=== PATIENT | female | born 1960 | race Caucasian/White ===

== ENCOUNTER → 2016-07-21 | Outpatient (CLI) | payer BC ==
[~2016-07-21] MED LIST: ASPEC81 PO; OMEG10007 PO; [UNRECOGNIZED DRUG - CODE]; [UNRECOGNIZED DRUG - OTHER]
[2016-07-21 19:04] LABS: BLOOD UREA NITROGEN 17 mg/dl (7-18); BUN/CREATININE RATIO 16.7 (10-20); CALCIUM 9.3 mg/dl (8.5-10.1); CARBON DIOXIDE 30 mmol/L (21-32); CHLORIDE 106 mmol/L (98-107); GLUCOSE 98 mg/dl (70-99); POTASSIUM 4.2 mmol/L (3.5-5.1); SODIUM 142 mmol/L (136-145)
== END | disposition home or self-care (01) ==
LOC: C.LABPVFM 11:22
PROVIDERS: ATTEND Family Medicine
DX: E87.6 Hypokalemia (principal)

== ENCOUNTER → 2016-08-27 | Outpatient (CLI) | payer BC ==
--- NOTE | 2016-08-27 11:16 | DIAGNOSTIC IMAGING REPORT ---
Venous Doppler right leg RIGHT VENOUS DOPP LOWER EXT UNILAT CLINICAL HISTORY: RT LEG Swelling, r/o DVT Right pain. Edema. TECHNIQUE: Venous Doppler COMPARISON STUDY: None FINDINGS: Deep venous structures appear to be intact. There is thrombus within the distal greater saphenous vein extending through several superficial venous varicosities of the lower leg. This consistent with rather significant superficial thrombophlebitis. There is popliteal cyst posterior to the knee measuring 3.5 x 2.0 cm. IMPRESSION: 1. Extensive superficial thrombophlebitis distal greater saphenous vein including several varicosities of the lower leg. 2. No evidence for deep venous thrombosis. 3. Small popliteal cyst posterior to the knee Electronically signed by: Tariq Lorenzo M.D. 08/27/2016 11:14 AM Dictated Date/Time: 08/27/2016 11:12 AM
== END | disposition home or self-care (01) ==
LOC: C.ULTRBC 10:14
PROVIDERS: ATTEND Nurse Practitioner Family
DX: M79.89 Other specified soft tissue disorders (principal); I80.01 Phlebitis and thrombophlebitis of superficial vessels of right lower extremity

== ENCOUNTER → 2016-12-21 | Outpatient (CLI) | payer BC ==
[2016-12-21 14:04] LABS: BLOOD UREA NITROGEN 16 mg/dl (7-18); BUN/CREATININE RATIO 18.3 (10-20); CALCIUM 9.1 mg/dl (8.5-10.1); CARBON DIOXIDE 30 mmol/L (21-32); CHLORIDE 106 mmol/L (98-107); GLUCOSE 101 mg/dl (70-99); MAGNESIUM 2.2 mg/dl (1.8-2.4); POTASSIUM 4.1 mmol/L (3.5-5.1); SODIUM 142 mmol/L (136-145)
== END | disposition home or self-care (01) ==
LOC: C.LABPVFM 10:50
PROVIDERS: ATTEND Family Medicine
DX: R25.2 Cramp and spasm (principal); I10 Essential (primary) hypertension

== ENCOUNTER → 2017-05-31 | Outpatient (CLI) | payer BC ==
[2017-05-31 12:51] LABS: BLOOD UREA NITROGEN 15 mg/dl (7-18); BUN/CREATININE RATIO 17.5 (10-20); CALCIUM 9.4 mg/dl (8.5-10.1); CARBON DIOXIDE 29 mmol/L (21-32); CHLORIDE 104 mmol/L (98-107); CREATININE 0.87 mg/dl (0.60-1.20); GLUCOSE 102 mg/dl (70-99); POTASSIUM 4.1 mmol/L (3.5-5.1); SODIUM 141 mmol/L (136-145)
== END | disposition home or self-care (01) ==
LOC: C.LABPVFM 11:03
PROVIDERS: ATTEND Family Medicine
DX: I10 Essential (primary) hypertension (principal)

== ENCOUNTER → 2017-06-23 | Outpatient (CLI) | payer BC ==
--- NOTE | 2017-06-23 14:34 | MAMMOGRAPHY REPORT ---
BILATERAL DIGITAL SCREENING MAMMOGRAM TOMOSYNTHESIS WITH CAD: 06/23/2017 CLINICAL HISTORY: Routine screening. Patient has no complaints. TECHNIQUE: Breast tomosynthesis in addition to standard 2D mammography was performed. Current study was also evaluated with a Computer Aided Detection (CAD) system. COMPARISON: Comparison is made to exams dated: 06/21/2016 mammogram, 06/17/2015 mammogram, 06/11/2014 mammogram, 06/08/2013 mammogram, 06/09/2012 ultrasound, and 06/09/2012 mammogram - [facility]. BREAST COMPOSITION: There are scattered areas of fibroglandular density in both breasts. FINDINGS: No suspicious masses, calcifications, or areas of architectural distortion are noted in ei ther breast. There has been no significant interval change compared to prior exams. IMPRESSION: ACR BI-RADS CATEGORY 1: NEGATIVE There is no mammographic evidence of malignancy. A 1 year screening mammogram is recommended. The pa tient will receive written notification of the results. Approximately 10% of breast cancers are not detected with mammography. A negative mammographic report should not delay biopsy if a clinically suggestive mass is present. Junie Vieira M.D. /:06/23/2017 11:10:56 Principal Examiner: Patricia TA(Jamila)(Umesh), [facility] letter sent: Normal 1/2 BI-RADS Code: ACR BI-RADS Category 1: Negative
== END | disposition home or self-care (01) ==
LOC: C.MAMM 09:34
PROVIDERS: ATTEND Family Medicine
DX: Z12.31 Encounter for screening mammogram for malignant neoplasm of breast (principal)

== ENCOUNTER → 2017-10-10 | Outpatient (CLI) | payer BC ==
[2017-10-10 13:07] LABS: ALBUMIN 3.7 gm/dl (3.4-5.0); ALT/SGPT 25 U/L (12-78); AST/SGOT 14 U/L (15-37); BLOOD UREA NITROGEN 20 mg/dl (7-18); CALCIUM 9.5 mg/dl (8.5-10.1); CARBON DIOXIDE 28 mmol/L (21-32); CREATININE 0.81 mg/dl (0.60-1.20); GLUCOSE 104 mg/dl (70-99); POTASSIUM 3.9 mmol/L (3.5-5.1); SODIUM 138 mmol/L (136-145)
[2017-10-10 13:10] LABS: ALKALINE PHOSPHATASE 60 U/L (45-117); CHOLESTEROL 213 mg/dl (0-200); LDL CHOLESTEROL CALCULATED 145 mg/dl; TOTAL PROTEIN 7.6 gm/dl (6.4-8.2)
== END | disposition home or self-care (01) ==
LOC: C.LABPVFM 10:39
PROVIDERS: ATTEND Family Medicine
DX: I83.90 Asymptomatic varicose veins of unspecified lower extremity (principal)

== ENCOUNTER 2024-03-11 15:35 | Inpatient (IN) ==
--- NOTE | 2024-03-11 16:39 | Emergency Department Note ---
Impression & Plan Fall, Closed fracture of left hip ED Provider Note Provider: Brannon Barrett MD DATE OF SERVICE: 03/11/2024 CHIEF COMPLAINT: Fall, left hip pain HISTORY OF PRESENT ILLNESS: Patient is a 63-year-old female history of arthritis hypertension presenting here today after a fall via ambulance. Patient states she was the [employer] fair and they were getting home and unloading a small fridge rater that they had taken to camp at the tent there. They are helping down she tripped on the threshold and fell back onto her left hip onto the ground. Denies striking her head. Denies loss conscious. Denies significant head pain, neck pain, shoulder pain, chest pain, or abdominal pain. Denies significant injury to the elbows. Did bump the left elbow several days ago but denies any significant pain here. Patient report significant pain to left hip was able to get up. Ambulance called and brought here. No pain medicine prior to arrival. No use of anticoagulants. Patient states that she does have some arthritis of the knees and the right leg is okay and the left knee and left foot do not hurt. She denies numbness in the leftlower extremity. Pain with movement of the left hip. No history of surgeries here. 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 NECK: Trachea midline. ENT: Mucous membranes pink and moist. LUNGS: Airway patent. No retractions. Breath sounds clear HEART: Regular rate and rhythm. No chest wall tenderness ABDOMEN: Soft and non-tender, without guarding or rebound. Stable pelvis SKIN: Acyanotic, warm, dry, without rashes EXTREMITIES: Without swelling, tenderness or deformity with a small healing contusion of the back of the left leg. There is pain with movement around the left hip but no significant tenderness of the left thigh knee. Soft compartments of the extremities appreciated. NEUROLOGICAL: No focal deficits. No aphasia. No facial droop or slurred speech. Normal strength and tone in the extremities. Sensation to gross touch normal. EK bpm normal sinus rhythm. No PVC or PAC. No acute ST segment elevation with some lateral ST flattening and a QTc of 441. CONTINUOUS CARDIAC MONITORING: was ordered and showed a heart rate of 60s to 70s bpm in normal sinus rhythm GCS 15. Patient's laboratory studies and imaging reviewed. Differential includes Fracture, dislocation, neurovascular compromise, compartment syndrome, soft tissue injury, head injury, rib fracture, intra- abdominal bleeding or pelvic bleeding, as well as other pathologies. IMPRESSION/MEDICAL DECISION MAKING: Patient resting comfortably in bed initially in no obvious distress. Neurologically intact. Limited movement around the left hip secondary to pain. No significant tenderness left lower leg or evidence of compartment syndrome in the extremities. Healing contusion to left elbow but no significant tenderness here. Did seem altered and denies any head injury. Not on # anticoagulants. X-ray imaging of the pelvis and hip show evidence of a left intertrochanteric hip fracture. Will give some fentanyl for pain. Basic blood work to be ordered. Reached out to orthopedics to discuss bring the patient in for definite repair/surgery. Updated patient and family at bedside with the findings. Hospitalist contacted for admission. Do not feel that time we need additional imaging beyond a chest x-ray and I doubt any significant intra- abdominal or pelvic bleeding. DIAGNOSIS: Left hip fracture, fall DISPOSITION: Hospitalist will evaluate Patient was agreeable with this plan. Past Med/Surg History Problem List (Updated 03/11/24 @ 16:39 by Brannon Barrett M.D.) Closed fracture of left hip (Acute) Fall (Acute) Abdominal pain Elevated hemoglobin A1c Right elbow tendonitis Colon cancer screening Venous stasis (Acute) Varicose veins of anus or rectum (Acute) Unknown whether patient has any health problems (Acute) Need for hepatitis C screening test (Acute) Mixed hyperlipidemia (Chronic) Glossitis (Chronic) Swelling of right side of face (Acute) Routine health maintenance (Chronic) Varicose veins of both lower extremities (Chronic) Lower back pain (Acute) Wound infection (Acute) Wound of left lower extremity (Acute) Chronic venous insufficiency (Chronic) Venous stasis ulcer (Acute) Degenerative arthritis of knee, bilateral Screening for diabetes mellitus Benign positional vertigo Medical History History of COVID-19 History of ulcer of lower extremity Hypercholesteremia Degenerative arthritis of knee, bilateral Phlebitis Chronic reflux esophagitis Hypertension Peripheral neuropathy Surgical History History of vein stripping H/O colonoscopy S/P tonsillectomy Family History Mother Myocardial infarction Father Prostate cancer Denies family history of Ovarian cancer Breast cancer Colorectal cancer Social History Smoking Status: Never smoker Second Hand Exposure: No; Do You Dip or Chew Tobacco: No; Hx Alcohol Use: No Hx Substance Use: No Preferred Language: Chinese Communication Ability: Effective Visual Impairment: No Limitations Hearing Ability: Normal Scrub Nurse Required: No Beliefs That Will Affect Care: None and Scientologist Scientologist Beliefs: BRANDON marital status: Single Current Living Situation: Alone current occupational status: employed 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 Feels Safe at Home: Yes caffeine: No Dental Care, Regularly: Yes Physical Activity Frequency: Does not Exercise Seatbelt Use: always Sunscreen Use: Yes Assistive Devices: Contacts and Glasses Allergies Allergies Allergy/AdvReac Type Severity Reaction Status Date / Time enoxaparin [From Lovenox] Allergy Unknown Hives Verified 03/11/24 18:08 lisinopril Allergy Unknown Hives Verified 03/11/24 18:08 Penicillins Allergy Unknown Hives Verified 03/11/24 18:08 Sulfa (Sulfonamide Allergy Unknown Hives Verified 03/11/24 18:08 Antibiotics) Home Meds Home Medications Medication Instructions Recorded Confirmed docusate sodium 100 mg capsule 100 mg PO BID 03/12/19 03/11/24 multivitamin (Daily Multi-Vitamin 1 tab PO DAILY 03/12/19 03/11/24 tablet) calcium citrate 200 mg 2 tab PO DAILY 07/20/19 03/11/24 calcium-vitamin D3 6.25 mcg (250 unit) tablet (Citracal-D3 Petites) ascorbate calcium (vitamin C) 500 500 mg PO DAILY 09/18/19 03/11/24 mg tablet omega-3 fatty acids-fish oil 360 1 cap PO BID 04/14/21 03/11/24 mg-1,200 mg capsule (Fish Oil) vitamin E mixed 400 unit tablet 400 units PO BID 04/14/21 03/11/24 cyanocobalamin (vitamin B-12) 1,000 mcg PO 3XWK 03/11/24 03/11/24 1,000 mcg tablet (Vitamin B-12) Previous Rx's Medication Instructions Recorded aspirin 81 mg tablet,delayed 81 mg PO DAILY #30 tabs 01/04/19 release (Adult Low Dose Aspirin) thigh high compression stockings #1 ea 05/07/22 spironolactone 25 mg tablet 25 mg PO QAM #90 tabs 10/11/23 atenolol 50 mg tablet 50 mg PO QAM #90 tabs 12/05/23 atorvastatin 20 mg tablet 20 mg PO QPM #90 tabs 12/05/23 potassium chloride 10 mEq 10 meq PO BID #180 tabs 12/05/23 tablet,extended release Results & Data (ED) Vital Signs Vital Signs - 24 hr 03/11/24 15:51 03/11/24 16:35 03/11/24 17:18 Temperature 36.6 C Temperature Source Oral Pulse Rate 66 65 69 Pulse Rate from SpO2 Sensor 70 Respiratory Rate 15 20 Respiratory Effort / Characteristics Non-Labored Spontaneous Respiratory Depth Normal Respiratory Pattern Regular Blood Pressure 144/76 H 170/88 H Blood Pressure Mean 98 115 Blood Pressure Position Lying Pulse Oximetry 97 97 Oxygen Delivery Method Room Air Room Air Sepsis Recent Fever Within 48 Hours No Sepsis New/Unexplained Change in Mental Status N/A Sepsis Action Taken by Nursing No Action Required 03/11/24 18:00 Temperature Temperature Source Pulse Rate 72 Pulse Rate from SpO2 Sensor Respiratory Rate 13 Respiratory Effort / Characteristics Respiratory Depth Respiratory Pattern Blood Pressure 139/82 Blood Pressure Mean 109 Blood Pressure Position Pulse Oximetry 95 Oxygen Delivery Method Room Air Sepsis Recent Fever Within 48 Hours Sepsis New/Unexplained Change in Mental Status Sepsis Action Taken by Nursing Laboratory Data 03/11/24 16:50 03/11/24 16:50 Lab Results 03/11/24 03/11/24 Range/Units 16:50 17:25 WBC 7.35 (4.8-10.8) K/ul RBC 4.72 (4.20-5.40) M/uL Hgb 14.0 (12.0-16.0) g/dl Hct 42.3 (37.0-47.0) % MCV 89.6 (80.0-100.0) fL MCH 29.7 (25.0-34.0) pg MCHC 33.1 (32.0-36.0) g/dL RDW Std Deviation 42.0 (36.4-46.3) fL RDW Coeff of Shira 12.7 (11.5-14.5) % Plt Count 215 (130-400) K/uL MPV 10.2 (9.4-12.4) fL Immature Gran % (Auto) 0.5 % Neut % (Auto) 70.2 % Lymph % (Auto) 17.7 % [place] % (Auto) 9.7 % Eos % (Auto) 1.2 % Baso % (Auto) 0.7 % Neut # (Auto) 5.16 (1.40-6.50) K/uL Lymph # (Auto) 1.30 (1.20-3.40) K/uL [place] # (Auto) 0.71 H (0.11-0.59) K/uL Eos # (Auto) 0.09 (0.00-0.50) K/uL Baso # (Auto) 0.05 (0.00-0.20) K/uL Immature Gran # (Auto) 0.04 (0.01-0.20) K/uL PT 11.0 (9.0-12.0) Seconds INR 1.0 (0.9-1.1) APTT 24 (21-31) Seconds PTT Ratio 0.9 Sodium 138 (136-145) mmol/L Potassium 4.6 (3.5-5.1) mmol/L Chloride 102 (98-107) mmol/L Carbon Dioxide 30 (21-32) mmol/L Anion Gap 6 (3-11) BUN 23 (6-23) mg/dl Creatinine 1.00 (0.6-1.2) mg/dl Est Cr Clr Drug Dosing 60.5 ml/min Est GFR ( Amer) 68.5 ml/min Est GFR (Non-Af Amer) 59.1 ml/min BUN/Creatinine Ratio 23.0 H (10-20) Glucose 117 H (70-99(Fasting)) mg/dl Calcium 9.8 (8.6-10.3) mg/dl Total Bilirubin 0.6 (0.2-1.0) mg/dl AST 23 (13-39) U/L ALT 22 (7-52) U/L Alkaline Phosphatase 60 (34-104) U/L Total Protein 7.6 (6.0-8.3) gm/dl Albumin 4.5 (3.4-5.0) gm/dl Globulin 3.1 (2.5-4.0) gm/dl Albumin/Globulin Ratio 1.5 (0.9-2) Urine Color Yellow Urine Appearance Clear (Clear) Urine pH 8.0 H (4.5-7.5) Ur Specific Powers 1.020 (1.000-1.030) Urine Protein Negative (Negative) Urine Glucose (UA) Negative (Negative) Urine Ketones Negative (Negative) Urine Blood Negative (Negative) Urine Nitrite Negative (Negative) Urine Bilirubin Negative (Negative) Urine Urobilinogen Negative (Negative) Ur Leukocyte Esterase Negative (Negative) SARS-CoV-2, RNA, NAAT NEGATIVE (NEGATIVE) Administered Medications Discontinued Medications Fentanyl Citrate (Fentanyl Citrate Pf 100 Mcg/2 Ml Vial) 50 mcg IV NOW STA Stop: 03/11/24 16:29 Last Admin: 03/11/24 16:46 Dose: 50 mcg Documented By: K[facility] Imaging Data Radiologist's Impression: Hip/Pelvis X-Ray 03/11/24 15:59 XR hip LT 2V w pelvis CLINICAL HISTORY: Hip trauma, fracture suspected, no prior imaging COMPARISON STUDY: None. FINDINGS: There is nondisplaced intertrochanteric fracture within the proximal left femur. No dislocation. No acute fracture or dislocation within the pelvis or right hip. IMPRESSION: Nondisplaced intertrochanteric fracture within the proximal left femur. ACT 112: Negative or not required by law. Electronically signed by: Yinka Hurtado M.D. 03/11/2024 5:14 PM Chest X-Ray 03/11/24 16:30 XR chest 1V portable HISTORY: Hip fracture. Fall. Preop. COMPARISON: None. FINDINGS: The lungs are clear. Cardiac silhouette is normal in size. No pleural effusions. No pneumothorax. IMPRESSION: No acute process. ACT 112: Negative or not required by law. Electronically signed by: Yinka Hurtado M.D. 03/11/2024 5:20 PM Discharge Plan Visit Data Chief Complaint: Fall ED Provider: Brannon Barrett Discharge Problem: Fall, Closed fracture of left hip Patient Disposition: Admitted As Inpatient Forms Stand Alone Forms: [facility] Prescriptions Prescriptions: No Action (DME) thigh high compression stockings See Rx Instructions .Route .MEDSUPPLY Qty: 1 0RF Rx Instructions: As directed spironolactone 25 mg tablet 25 mg PO QAM Qty: 90 1RF atorvastatin 20 mg tablet 20 mg PO QPM Qty: 90 1RF Rx Instructions: TAKE 1 TABLET BY MOUTH DAILY atenolol 50 mg tablet 50 mg PO QAM Qty: 90 1RF potassium chloride 10 mEq tablet extended release 10 meq PO BID Qty: 180 1RF aspirin [Adult Low Dose Aspirin] 81 mg tablet,delayed release (DR/EC) 81 mg PO DAILY Qty: 30 2RF ascorbate calcium (vitamin C) 500 mg tablet 500 mg PO DAILY calcium citrate-vitamin D3 [Citracal-D3 Petites] 200 mg calcium -250 unit tablet 2 tab PO DAILY docusate sodium 100 mg capsule 100 mg PO BID multivitamin [Daily Multi-Vitamin] tablet 1 tab PO DAILY omega-3 fatty acids-fish oil [Fish Oil] 360-1,200 mg capsule 1 cap PO BID Rx Instructions: administer after a meal vitamin E mixed 400 unit tablet 400 units PO BID cyanocobalamin (vitamin B-12) [Vitamin B-12] 1,000 mcg Tablet 1,000 mcg PO 3XWK Rx Instructions: Mon/Wed/Fri Referrals Referrals: Pratibha Ballard MD [Primary Care Provider] - Discharge Problem: Fall Qualifiers: Encounter type: initial encounter Qualified Code(s): W19.XXXA - Unspecified fall, initial encounter Closed fracture of left hip Qualifiers: Encounter type: initial encounter Qualified Code(s): S72.002A - Fracture of unspecified part of neck of left femur, initial encounter for closed fracture
[2024-03-11] MEDS: fentaNYL citrate PF 100 MCG/2 ML VIAL IV STA (16:46)
[2024-03-11 17:12] LABS: Basophils # (auto) 0.05 K/uL (0.00-0.20); Basophils % (auto) 0.7 %; Eosinophils # (auto) 0.09 K/uL (0.00-0.50); Eosinophils % (auto) 1.2 %; Hematocrit (blood only) 42.3 % (37.0-47.0); Immature Granulocytes # (auto) 0.04 K/uL (0.01-0.20); Immature Granulocytes % (auto) 0.5 %; Lymphocytes % (auto) 17.7 %; Mean Corpuscular Hemoglobin 29.7 pg (25.0-34.0); Mean Corpuscular Hgb Conc 33.1 g/dL (32.0-36.0); Mean Corpuscular Volume 89.6 fL (80.0-100.0); Mean Platelet Volume 10.2 fL (9.4-12.4); Monocytes # (auto) 0.71 K/uL (0.11-0.59); Monocytes % (auto) 9.7 %; Neutrophils # (auto) 5.16 K/uL (1.40-6.50); Neutrophils % (auto) 70.2 %; Platelet Count 215 K/uL (130-400); RDW Coefficient of Variation 12.7 % (11.5-14.5); Red Blood Count 4.72 M/uL (4.20-5.40); White Blood Count 7.35 K/ul (4.8-10.8)
--- NOTE | 2024-03-11 17:15 | XRay Report ---
XR hip LT 2V w pelvis CLINICAL HISTORY: Hip trauma, fracture suspected, no prior imaging COMPARISON STUDY: None. FINDINGS: There is nondisplaced intertrochanteric fracture within the proximal left femur. No disloca tion. No acute fracture or dislocation within the pelvis or right hip. IMPRESSION: Nondisplaced intertrochanteric fracture within the proximal left femur. ACT 112: Negative or not required by law. Electronically signed by: Yinka Hurtado M.D. 03/11/2024 5:14 PM
[2024-03-11 17:19] LABS: Partial Thromboplastin Ratio 0.9; Partial Thromboplastin Time 24 Seconds (21-31)
--- NOTE | 2024-03-11 17:21 | XRay Report ---
XR chest 1V portable HISTORY: Hip fracture. Fall. Preop. COMPARISON: None. FINDINGS: The lungs are clear. Cardiac silhouette is normal in size. No pleural effusions. No pneumot horax. IMPRESSION: No acute process. ACT 112: Negative or not required by law. Electronically signed by: Yinka Hurtado M.D. 03/11/2024 5:20 PM
[2024-03-11 17:34] LABS: Appearance Urine Clear (Clear); Bilirubin Urine Negative (Negative); Blood Urine Negative (Negative); Color Urine Yellow; Glucose Urine UA Negative (Negative); Ketones Urine Negative (Negative); Leukocyte Esterase Urine Negative (Negative); Nitrite Urine Negative (Negative); Protein Urine Negative (Negative); Urobilinogen Urine Negative (Negative)
--- NOTE | 2024-03-11 17:34 | History & Physical Report ---
Date of Service March 11, 2024 Assessment & Plan (1) Closed fracture of left hip: Plan: Admit to [facility] Currently stable and nontoxic-appearing Presented to ED via EMS after sustaining a mechanical fall while walking backwards carrying a mini fridge into her home landing on her left hip X-ray of the left hip shows a nondisplaced intertrochanteric fracture within the proximal left femur. No other acute trauma on exam Orthopedic consult been placed, will make n.p.o. at midnight in case of the OR tomorrow Pain control with scheduled Tylenol and as needed morphine As needed Narcan for oversedation/respiratory depression Bilateral SCDs for DVT prophylaxis Heart healthy diet until midnight then n.p.o. AM CBC, CMP, mag, PT/INR (2) Hypertension: Plan: Currently stable after receiving pain medication in the ED Will plan to continue home atenolol but hold spironolactone for now (3) Hypercholesteremia: Plan: Continue statin Hold aspirin for now until after her procedure Plan The patient was discussed with Dr. Park at the time of the admission History of Present Illness Chief Complaint: fall, left hip pain Primary Care Provider: Pratibha Ballard MD Alessandra is a 63-year-old female with a past medical history significant for hypertension and hyperlipidemia who presented to the [facility] ED on 03/11/2024 via EMS after sustaining a mechanical fall at home with subsequent left hip pain. Patient reportedly had just arrived home with family from the [facility] and was unpacking equipment. She tripped and fell backwards landing on her left hip. Denies hitting her head or losing consciousness. Noted to be hypertensive on arrival at 170/88 otherwise stable. Labs including CBC, CMP, and UA were unremarkable Chest x-ray was read as negative for acute findings. X-ray of the left hip and pelvis was read as a nondisplaced intertrochanteric fracture within the proximal left femur. Prior to admission the patient was given 50 mcg IV fentanyl. Patient was lying in bed in no acute distress at time of exam with her sister is bedside, history is obtained from all. She explains that she and one of her sisters were carrying their mini fridge into her home. She was walking backwards while carrying the fridge while her other sister was walking forwards. She did not clear the entryway step which caused her to fall landing on her left hip. Confirms again did not hit her head or lose consciousness, only pain at this time as the left hip. Pain is currently controlled after receiving fentanyl in the ED. No recent fever, chills, chest pain, shortness of breath, cough, nausea/vomiting, abdominal pain, urinary symptoms, diarrhea. She is a full code and want her sisters to make medical decisions for her if she cannot make them herself. Please refer to Dr. Park's attestation for any changes to the treatment plan Allergies Allergy/AdvReac Type Severity Reaction Status Date / Time enoxaparin [From Lovenox] Allergy Unknown Hives Verified 03/11/24 18:08 lisinopril Allergy Unknown Hives Verified 03/11/24 18:08 Penicillins Allergy Unknown Hives Verified 03/11/24 18:08 Sulfa (Sulfonamide Allergy Unknown Hives Verified 03/11/24 18:08 Antibiotics) Home Medications Medication Instructions Recorded Confirmed Type aspirin 81 mg tablet,delayed 81 mg PO DAILY #30 tabs 01/04/19 03/11/24 Rx release (Adult Low Dose Aspirin) docusate sodium 100 mg capsule 100 mg PO BID 03/12/19 03/11/24 History multivitamin (Daily Multi-Vitamin 1 tab PO DAILY 03/12/19 03/11/24 History tablet) calcium citrate 200 mg 2 tab PO DAILY 07/20/19 03/11/24 History calcium-vitamin D3 6.25 mcg (250 unit) tablet (Citracal-D3 Petites) ascorbate calcium (vitamin C) 500 500 mg PO DAILY 09/18/19 03/11/24 History mg tablet omega-3 fatty acids-fish oil 360 1 cap PO BID 04/14/21 03/11/24 History mg-1,200 mg capsule (Fish Oil) vitamin E mixed 400 unit tablet 400 units PO BID 04/14/21 03/11/24 History thigh high compression stockings #1 ea 05/07/22 12/06/23 Rx spironolactone 25 mg tablet 25 mg PO QAM #90 tabs 10/11/23 03/11/24 Rx atenolol 50 mg tablet 50 mg PO QAM #90 tabs 12/05/23 03/11/24 Rx atorvastatin 20 mg tablet 20 mg PO QPM #90 tabs 12/05/23 03/11/24 Rx potassium chloride 10 mEq 10 meq PO BID #180 tabs 12/05/23 03/11/24 Rx tablet,extended release cyanocobalamin (vitamin B-12) 1,000 mcg PO 3XWK 03/11/24 03/11/24 History 1,000 mcg tablet (Vitamin B-12) Past Med/Surg History Problem List (Updated 03/11/24 @ 16:39 by Brannon Barrett M.D.) Closed fracture of left hip (Acute) Fall (Acute) Abdominal pain Elevated hemoglobin A1c Right elbow tendonitis Colon cancer screening Venous stasis (Acute) Varicose veins of anus or rectum (Acute) Unknown whether patient has any health problems (Acute) Need for hepatitis C screening test (Acute) Mixed hyperlipidemia (Chronic) Glossitis (Chronic) Swelling of right side of face (Acute) Routine health maintenance (Chronic) Varicose veins of both lower extremities (Chronic) Lower back pain (Acute) Wound infection (Acute) Wound of left lower extremity (Acute) Chronic venous insufficiency (Chronic) Venous stasis ulcer (Acute) Degenerative arthritis of knee, bilateral Screening for diabetes mellitus Benign positional vertigo Medical History History of COVID-19 History of ulcer of lower extremity Hypercholesteremia Degenerative arthritis of knee, bilateral Phlebitis Chronic reflux esophagitis Hypertension Peripheral neuropathy Surgical History History of vein stripping H/O colonoscopy S/P tonsillectomy Family History Mother Myocardial infarction Father Prostate cancer Denies family history of Ovarian cancer Breast cancer Colorectal cancer Social History Smoking Status: Never smoker Second Hand Exposure: No; Do You Dip or Chew Tobacco: No; Tobacco Cessation Education Requested by Patient: No Hx Alcohol Use: No Hx Substance Use: No Preferred Language: Slovenian Communication Ability: Effective Visual Impairment: No Limitations Hearing Ability: Normal Pile Driver Operator Required: No Beliefs That Will Affect Care: None marital status: Single Current Living Situation: Alone current occupational status: employed 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 Other Information That Helps Us Care for You: No Feels Safe at Home: Yes Safety Concerns: Feels Safe At This Time caffeine: No Dental Care, Regularly: Yes Physical Activity Frequency: Does not Exercise Seatbelt Use: always Sunscreen Use: Yes Assistive Devices: None Physical Exam Physical Exam: Physical Exam: General: In no acute distress, stated age, well-nourished, good hygiene HEENT: Normocephalic, atraumatic, no scleral icterus, pupils around round, symmetrical, and reactive to light, moist mucus membranes, trachea midline, no thyromegaly Chest/Pulm: No respiratory distress, symmetrical chest expansion, clear breath sounds throughout Cardiac: RRR, no murmurs noted Abdomen: Negative for ascites and bruising, normoactive bowel sounds, soft, non-tender to palpation throughout Musculoskeletal: Left lower extremity is currently shortened and externally rotated, otherwise no acute trauma on exam Extremities: Radial, dorsalis pedis, and posterior tibial pulses are intact and symmetrical, no edema noted in the BL LE's Skin: Warm, dry, no rashes , lesions, or scars noted Neuro: Alert and oriented to person, place, month, year, and president, no focal defects, no tremors noted > Intact sensation motor function in the bilateral feet Psych: No acute distress, calm and cooperative during the exam Results & Data Results & Data Vital Signs (Past 12 Hours) Vital Signs Temp Pulse Resp BP Pulse Ox O2 Del Method 03/11/24 17:18 69 20 170/88 H 97 Room Air 03/11/24 16:35 65 03/11/24 15:51 36.6 C 66 15 144/76 H 97 Room Air Laboratory Results Abnormal lab results 03/11/24 03/11/24 Range/Units 16:50 17:25 [place] # (Auto) 0.71 H (0.11-0.59) K/uL BUN/Creatinine Ratio 23.0 H (10-20) Glucose 117 H (70-99(Fasting)) mg/dl Urine pH 8.0 H (4.5-7.5) Diagnostic Findings Hip/Pelvis X-Ray 03/11/24 15:59 XR hip LT 2V w pelvis CLINICAL HISTORY: Hip trauma, fracture suspected, no prior imaging COMPARISON STUDY: None. FINDINGS: There is nondisplaced intertrochanteric fracture within the proximal left femur. No dislocation. No acute fracture or dislocation within the pelvis or right hip. IMPRESSION: Nondisplaced intertrochanteric fracture within the proximal left femur. ACT 112: Negative or not required by law. Electronically signed by: Yinka Hurtado M.D. 03/11/2024 5:14 PM Chest X-Ray 03/11/24 16:30 XR chest 1V portable HISTORY: Hip fracture. Fall. Preop. COMPARISON: None. FINDINGS: The lungs are clear. Cardiac silhouette is normal in size. No pleural effusions. No pneumothorax. IMPRESSION: No acute process. ACT 112: Negative or not required by law. Electronically signed by: Yinka Hurtado M.D. 03/11/2024 5:20 PM Code Status & VTE Plan Code Status Full code VTE Prophylaxis Plan VTE Prophylaxis will be ordered: Yes Supervising Physician Co-Signing Physician Notes I personally saw and examined the patient. I verified all forbes points and agree with Cheo Martin PA-C with the following exceptions and/or additions: 63 year old female presents to the ER following a mechanical fall and left hip pain O/E HS RRR, no murmurs, Chest CTAB, Abdo SNT, left ship skin intact, no shortening or leg, NV intact distal to fracture A/P Closed left hip fracture - Bedrest, Pain control, NPO after midnight, consult orthopedics, consider DEXA as outpatient PG Care Time/CCT Total # of Minutes Spent Total Time Spent with Patient: Total time spent is greater than 50% in coordination of care (as documented) at patient's floor/unit and/or counseling patient: Coding [place] [address] INT INP/OBS CARE 2/55MIN Patient Type Established Medical Decision Making Moderate Complexity Diagnoses Closed fracture of left hip S72.002A Encounter type: initial encounter Primary hypertension I10 Hypertension type: primary hypertension Hypercholesteremia E78.00 (1) Closed fracture of left hip Encounter type: initial encounter Qualified Code(s): S72.002A - Fracture of unspecified part of neck of left femur, initial encounter for closed fracture (2) Hypertension Hypertension type: primary hypertension Qualified Code(s): I10 - Essential (primary) hypertension
[2024-03-11 17:40] LABS: Albumin Globulin Ratio 1.5 (0.9-2); Albumin Level 4.5 gm/dl (3.4-5.0); Bilirubin,Total 0.6 mg/dl (0.2-1.0); Calcium 9.8 mg/dl (8.6-10.3); Creatinine Clr Calc Pharmacy 60.5 ml/min; Est GFR (African American) 68.5 ml/min; Est GFR (Non-African American) 59.1 ml/min; Globulin 3.1 gm/dl (2.5-4.0); Total Protein 7.6 gm/dl (6.0-8.3)
[2024-03-11 17:47] LABS: Potassium 4.6 mmol/L (3.5-5.1)
[2024-03-11] MEDS ORDERED: bisacodyL 10 MG SUPP PR PRN (17:51)
[2024-03-11] MEDS ORDERED: NALOXONE HCL 0.4 MG/1 ML VIAL/CARP IV PRN (17:51)
[2024-03-11] MEDS ORDERED: MAGNESIUM HYDROXIDE SUSP 30 ML UDC PO PRN (17:51)
--- NOTE | 2024-03-11 17:57 | Orthopedic Consultation ---
Date of Consultation March 11, 2024 Assessment & Plan (1) Closed fracture of left hip: Present on Admission?: Yes History of Present Illness Reason for Consultation: Left hip fracture Requesting Physician: Khai Beatty MD History of Present Illness 63 yo female Allergies Allergy/AdvReac Type Severity Reaction Status Date / Time enoxaparin [From Lovenox] Allergy Unknown Hives Verified 12/06/23 10:16 lisinopril Allergy Unknown Hives Verified 12/06/23 10:16 Penicillins Allergy Unknown Hives Verified 12/06/23 10:16 Sulfa (Sulfonamide Allergy Unknown Hives Verified 12/06/23 10:16 Antibiotics) Home Medications Medication Instructions Recorded Confirmed Type aspirin 81 mg tablet,delayed 81 mg PO DAILY #30 tabs 01/04/19 12/06/23 Rx release (Adult Low Dose Aspirin) docusate sodium 100 mg capsule 100 mg PO BID 03/12/19 12/06/23 History multivitamin (Daily Multi-Vitamin 1 tab PO DAILY 03/12/19 12/06/23 History tablet) calcium citrate 200 mg 2 tab PO DAILY 07/20/19 12/06/23 History calcium-vitamin D3 6.25 mcg (250 unit) tablet (Citracal-D3 Petites) ascorbate calcium (vitamin C) 500 500 mg PO DAILY 09/18/19 12/06/23 History mg tablet vitamin B complex (B 1 tab PO 3XWK 04/22/20 12/06/23 History Complex-Vitamin B12 tablet) omega-3 fatty acids-fish oil 360 1 cap PO BID 04/14/21 12/06/23 History mg-1,200 mg capsule (Fish Oil) vitamin E mixed 400 unit tablet 400 units PO BID 04/14/21 12/06/23 History thigh high compression stockings #1 ea 05/07/22 12/06/23 Rx spironolactone 25 mg tablet 25 mg PO QAM #90 tabs 10/11/23 12/06/23 Rx atenolol 50 mg tablet 50 mg PO QAM #90 tabs 12/05/23 12/06/23 Rx atorvastatin 20 mg tablet 20 mg PO QPM #90 tabs 12/05/23 12/06/23 Rx potassium chloride 10 mEq 10 meq PO BID #180 tabs 12/05/23 12/06/23 Rx tablet,extended release Patient History Medical History History of COVID-19 History of ulcer of lower extremity Hypercholesteremia Degenerative arthritis of knee, bilateral Phlebitis Chronic reflux esophagitis Hypertension Peripheral neuropathy Surgical History History of vein stripping H/O colonoscopy S/P tonsillectomy Family History Mother Myocardial infarction Father Prostate cancer Denies family history of Ovarian cancer Breast cancer Colorectal cancer Social History Smoking Status: Never smoker Second Hand Exposure: No; Do You Dip or Chew Tobacco: No; Hx Alcohol Use: No Hx Substance Use: No Preferred Language: Citizen Of [place] Communication Ability: Effective Visual Impairment: No Limitations Hearing Ability: Normal Performance Test Architect Required: No Beliefs That Will Affect Care: None and Congregation Congregation Beliefs: ANABAPTISM marital status: Single Current Living Situation: Alone current occupational status: employed 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 Feels Safe at Home: Yes caffeine: No Dental Care, Regularly: Yes Physical Activity Frequency: Does not Exercise Seatbelt Use: always Sunscreen Use: Yes Assistive Devices: Contacts and Glasses Review of Systems Review of Systems: All systems reviewed & are unremarkable except as noted in HPI & below Physical Exam Physical Exam: LLE: Results & Data Vital Signs (Past 12 Hours) Vital Signs Temp Pulse Resp BP Pulse Ox O2 Del Method 03/11/24 17:18 69 20 170/88 H 97 Room Air 03/11/24 16:35 65 03/11/24 15:51 36.6 C 66 15 144/76 H 97 Room Air Laboratory Results 03/11/24 03/11/24 Range/Units 17:25 16:50 WBC 7.35 (4.8-10.8) K/ul RBC 4.72 (4.20-5.40) M/uL Hgb 14.0 (12.0-16.0) g/dl Hct 42.3 (37.0-47.0) % MCV 89.6 (80.0-100.0) fL MCH 29.7 (25.0-34.0) pg MCHC 33.1 (32.0-36.0) g/dL RDW Std Deviation 42.0 (36.4-46.3) fL RDW Coeff of Shira 12.7 (11.5-14.5) % Plt Count 215 (130-400) K/uL MPV 10.2 (9.4-12.4) fL Immature Gran % (Auto) 0.5 % Neut % (Auto) 70.2 % Lymph % (Auto) 17.7 % [place] % (Auto) 9.7 % Eos % (Auto) 1.2 % Baso % (Auto) 0.7 % Neut # (Auto) 5.16 (1.40-6.50) K/uL Lymph # (Auto) 1.30 (1.20-3.40) K/uL [place] # (Auto) 0.71 H (0.11-0.59) K/uL Eos # (Auto) 0.09 (0.00-0.50) K/uL Baso # (Auto) 0.05 (0.00-0.20) K/uL Immature Gran # (Auto) 0.04 (0.01-0.20) K/uL PT 11.0 (9.0-12.0) Seconds INR 1.0 (0.9-1.1) APTT 24 (21-31) Seconds PTT Ratio 0.9 Sodium 138 (136-145) mmol/L Potassium 4.6 (3.5-5.1) mmol/L Chloride 102 (98-107) mmol/L Carbon Dioxide 30 (21-32) mmol/L Anion Gap 6 (3-11) BUN 23 (6-23) mg/dl Creatinine 1.00 (0.6-1.2) mg/dl Est Cr Clr Drug Dosing 60.5 ml/min Est GFR ( Amer) 68.5 ml/min Est GFR (Non-Af Amer) 59.1 ml/min BUN/Creatinine Ratio 23.0 H (10-20) Glucose 117 H (70-99(Fasting)) mg/dl Calcium 9.8 (8.6-10.3) mg/dl Total Bilirubin 0.6 (0.2-1.0) mg/dl AST 23 (13-39) U/L ALT 22 (7-52) U/L Alkaline Phosphatase 60 (34-104) U/L Total Protein 7.6 (6.0-8.3) gm/dl Albumin 4.5 (3.4-5.0) gm/dl Globulin 3.1 (2.5-4.0) gm/dl Albumin/Globulin Ratio 1.5 (0.9-2) Urine Color Yellow Urine Appearance Clear (Clear) Urine pH 8.0 H (4.5-7.5) Ur Specific [place] 1.020 (1.000-1.030) Urine Protein Negative (Negative) Urine Glucose (UA) Negative (Negative) Urine Ketones Negative (Negative) Urine Blood Negative (Negative) Urine Nitrite Negative (Negative) Urine Bilirubin Negative (Negative) Urine Urobilinogen Negative (Negative) Ur Leukocyte Esterase Negative (Negative) SARS-CoV-2, RNA, NAAT NEGATIVE (NEGATIVE) Diagnostic Findings XR chest 1V portable HISTORY: Hip fracture. Fall. Preop. COMPARISON: None. FINDINGS: The lungs are clear. Cardiac silhouette is normal in size. No pleural effusions. No pneumothorax. IMPRESSION: No acute process. ACT 112: Negative or not required by law. Electronically signed by: Yinka Hurtado M.D. 03/11/2024 5:20 PM XR hip LT 2V w pelvis CLINICAL HISTORY: Hip trauma, fracture suspected, no prior imaging COMPARISON STUDY: None. FINDINGS: There is nondisplaced intertrochanteric fracture within the proximal left femur. No dislocation. No acute fracture or dislocation within the pelvis or right hip. IMPRESSION: Nondisplaced intertrochanteric fracture within the proximal left femur. ACT 112: Negative or not required by law. Electronically signed by: Yinka Hurtado M.D. 03/11/2024 5:14 PM (1) Closed fracture of left hip Encounter type: initial encounter Qualified Code(s): S72.002A - Fracture of unspecified part of neck of left femur, initial encounter for closed fracture
[2024-03-11] MEDS: ACETAMINOPHEN 325 MG TAB PO SCH (19:34)
[2024-03-11] MEDS: MoRPHine SULFATE 4 MG/ML 1 ML CARP\\VIAL IV PRN (19:38)
[2024-03-11] MEDS: ATORVASTATIN 20 MG TAB PO SCH (21:22)
[2024-03-12] MEDS: MoRPHine SULFATE 2 MG/ML CARP IV PRN (00:04)
[2024-03-12 06:30] LABS: Basophils # (auto) 0.05 K/uL (0.00-0.20); Basophils % (auto) 0.6 %; Eosinophils % (auto) 1.2 %; Hematocrit (blood only) 36.7 % (37.0-47.0); Hemoglobin 12.3 g/dl (12.0-16.0); Immature Granulocytes # (auto) 0.02 K/uL (0.01-0.20); Immature Granulocytes % (auto) 0.2 %; Lymphocytes # (auto) 1.39 K/uL (1.20-3.40); Mean Corpuscular Hemoglobin 29.4 pg (25.0-34.0); Mean Corpuscular Hgb Conc 33.5 g/dL (32.0-36.0); Mean Corpuscular Volume 87.8 fL (80.0-100.0); Mean Platelet Volume 10.1 fL (9.4-12.4); Monocytes # (auto) 1.13 K/uL (0.11-0.59); Monocytes % (auto) 13.8 %; Neutrophils # (auto) 5.51 K/uL (1.40-6.50); Neutrophils % (auto) 67.2 %; Platelet Count 201 K/uL (130-400); RDW Coefficient of Variation 12.9 % (11.5-14.5); RDW Standard Deviation 41.8 fL (36.4-46.3); Red Blood Count 4.18 M/uL (4.20-5.40)
[2024-03-12 06:58] LABS: BUN Creatinine Ratio 29.9 (10-20); Calcium 9.1 mg/dl (8.6-10.3); Creatinine Clr Calc Pharmacy 78.6 ml/min; Est GFR (African American) 93.9 ml/min; Magnesium 1.8 mg/dl (1.7-2.4); Potassium 3.8 mmol/L (3.5-5.1)
--- NOTE | 2024-03-12 07:45 | Orthopedic Progress Note ---
Date of Service March 12, 2024 Assessment & Plan (1) Closed fracture of left hip: Plan: IMPRESSION: L intra-trochanteric hip fracture, min. displaced, closed. PLAN: The patient is a 63 year old female who sustained a left hip fracture from a ground level fall. The patients treatment options of conservative versus surgical intervention were discussed. Since the patient was an ambulatory prior to the injury and to avoid the risks of bed sores, pulmonary complications, and to give the best chance for ambulation, I recommended surgery. The patient understands the risks of surgery, which include but are not limited to: bleeding, infection, re-operation, damage to nerves and arteries, continued pain, failure of the hardware, mal-union, non-union, DVT, and . In addition the patient is aware of the 20-30% morbidity associated with hip fracture for up to 1 year following a hip fracture. The patient has elected to proceed with surgery and the informed consent was signed. The patient understands all of these instructions and explanations, all of their questions have been satisfactorily addressed. Placed on the add-on schedule for later today if medically stable. Patient has been NPO after midnight, IVF added. The patient will be NWB. TEDs and foot pumps to RLE. Antibiotics and TXA application packager to OR. Present on Admission?: Yes Admission and Anticipated Discharge Date Admission Date: March 11, 2024 Subjective Left hip pain. Physical Exam Physical Exam: LLE: Neurovascularly intact. Externally rotated. calf soft non-tender. Results & Data Vital Signs (Past 12 Hours) Vital Signs Temp Pulse Pulse Resp BP Pulse Ox O2 Del Method 03/12/24 07:33 74 18 145/79 H 96 Room Air 03/11/24 20:00 37.1 C 72 16 176/70 H 97 Room Air Laboratory Results 03/12/24 03/11/24 03/11/24 Range/Units 05:56 17:25 16:50 WBC 8.20 7.35 (4.8-10.8) K/ul RBC 4.18 L 4.72 (4.20-5.40) M/uL Hgb 12.3 14.0 (12.0-16.0) g/dl Hct 36.7 L 42.3 (37.0-47.0) % MCV 87.8 89.6 (80.0-100.0) fL MCH 29.4 29.7 (25.0-34.0) pg MCHC 33.5 33.1 (32.0-36.0) g/dL RDW Std Deviation 41.8 42.0 (36.4-46.3) fL RDW Coeff of Shira 12.9 12.7 (11.5-14.5) % Plt Count 201 215 (130-400) K/uL MPV 10.1 10.2 (9.4-12.4) fL Immature Gran % (Auto) 0.2 0.5 % Neut % (Auto) 67.2 70.2 % Lymph % (Auto) 17.0 17.7 % [place] % (Auto) 13.8 9.7 % Eos % (Auto) 1.2 1.2 % Baso % (Auto) 0.6 0.7 % Neut # (Auto) 5.51 5.16 (1.40-6.50) K/uL Lymph # (Auto) 1.39 1.30 (1.20-3.40) K/uL [place] # (Auto) 1.13 H 0.71 H (0.11-0.59) K/uL Eos # (Auto) 0.10 0.09 (0.00-0.50) K/uL Baso # (Auto) 0.05 0.05 (0.00-0.20) K/uL Immature Gran # (Auto) 0.02 0.04 (0.01-0.20) K/uL PT 11.0 11.0 (9.0-12.0) Seconds INR 1.0 1.0 (0.9-1.1) APTT 24 (21-31) Seconds PTT Ratio 0.9 Sodium 138 138 (136-145) mmol/L Potassium 3.8 4.6 (3.5-5.1) mmol/L Chloride 103 102 (98-107) mmol/L Carbon Dioxide 30 30 (21-32) mmol/L Anion Gap 5 6 (3-11) BUN 23 23 (6-23) mg/dl Creatinine 0.77 1.00 (0.6-1.2) mg/dl Est Cr Clr Drug Dosing 78.6 60.5 ml/min Est GFR ( Amer) 93.9 68.5 ml/min Est GFR (Non-Af Amer) 81.0 59.1 ml/min BUN/Creatinine Ratio 29.9 H 23.0 H (10-20) Glucose 125 H 117 H (70-99(Fasting)) mg/dl Calcium 9.1 9.8 (8.6-10.3) mg/dl Magnesium 1.8 (1.7-2.4) mg/dl Total Bilirubin 0.6 (0.2-1.0) mg/dl AST 23 (13-39) U/L ALT 22 (7-52) U/L Alkaline Phosphatase 60 (34-104) U/L Total Protein 7.6 (6.0-8.3) gm/dl Albumin 4.5 (3.4-5.0) gm/dl Globulin 3.1 (2.5-4.0) gm/dl Albumin/Globulin Ratio 1.5 (0.9-2) Urine Color Yellow Urine Appearance Clear (Clear) Urine pH 8.0 H (4.5-7.5) Ur Specific [place] 1.020 (1.000-1.030) Urine Protein Negative (Negative) Urine Glucose (UA) Negative (Negative) Urine Ketones Negative (Negative) Urine Blood Negative (Negative) Urine Nitrite Negative (Negative) Urine Bilirubin Negative (Negative) Urine Urobilinogen Negative (Negative) Ur Leukocyte Esterase Negative (Negative) SARS-CoV-2, RNA, NAAT NEGATIVE (NEGATIVE) Diagnostic Findings XR hip LT 2V w pelvis CLINICAL HISTORY: Hip trauma, fracture suspected, no prior imaging COMPARISON STUDY: None. FINDINGS: There is nondisplaced intertrochanteric fracture within the proximal left femur. No dislocation. No acute fracture or dislocation within the pelvis or right hip. IMPRESSION: Nondisplaced intertrochanteric fracture within the proximal left femur. ACT 112: Negative or not required by law. Electronically signed by: Yinka Hurtado M.D. 03/11/2024 5:14 PM (1) Closed fracture of left hip Encounter type: initial encounter Qualified Code(s): S72.002A - Fracture of unspecified part of neck of left femur, initial encounter for closed fracture
[2024-03-12] MEDS: ATENOLOL 50 MG TABLET PO SCH (07:46)
[2024-03-12] MEDS: SODIUM CHLORIDE 0.9% 1,000 ML IV SCH (08:11)
[2024-03-12] MEDS: SODIUM CHLORIDE 0.9% 500 ML IV SCH (08:30)
--- NOTE | 2024-03-12 11:20 | Hospitalist Progress Note ---
Date of Service March 12, 2024 Assessment & Plan (1) Closed fracture of left hip: Plan: Presented to the hospital following a mechanical fall X-ray of the left hip shows a nondisplaced intertrochanteric fracture within the proximal left femur. Ortopedic consulted, plan is for surgery today Pain control with scheduled Tylenol and as needed morphine PT OT after surgery (2) Hypertension: Plan: Blood pressure under fair control Will plan to continue home atenolol but hold spironolactone for now (3) Hypercholesteremia: Plan: Continue statin Hold aspirin for now until after her procedure Plan Patient scheduled for bilateral Full code DVT prophylaxis SCDs for now Admission and Anticipated Discharge Date Admission Date: March 11, 2024 Subjective Patient seen and examined, his pain is under good control, awaiting OR which is scheduled for later this evening Review of Systems Review of Systems: All systems reviewed are negative, apart from the ones contained in the history. Physical Exam Physical Exam: The patient is awake, alert and oriented 3, well developed and well nourished, normocephalic and atraumatic, lying in bed and in no acute distress. HEENT--PERRL, EOMI, mucous membranes and oropharynx mildly dry Neck--supple. No JVD. No bruits. Thyroid normal, trachea midline, no adenopathy. Heart--normal S1 and S2. No murmurs, rubs or gallops. Lungs--clear bilaterally, no respiratory distress, no accessory muscle use. Abdomen--normal bowel sounds and soft. Extremities--no cyanosis or clubbing. No edema. Dermatologic--normal skin turgor, normal color, no abnormal lymph nodes, no rash. Neurologic--cranial nerves II through XII grossly intact. Rheumatologic--normal range of motion. Psychiatric--normal affect. Results & Data Results & Data Vital Signs (Past 12 Hours) Vital Signs Pulse Resp BP Pulse Ox O2 Del Method 03/12/24 07:33 74 18 145/79 H 96 Room Air PG Care Time/CCT Total # of Minutes Spent Total Time Spent with Patient: Total time spent is greater than 50% in coordination of care (as documented) at patient's floor/unit and/or counseling patient: Coding Level of Care Code 98348 SUB INP/OBS CARE 2/35MIN Diagnoses Closed fracture of left hip S72.002A Encounter type: initial encounter Primary hypertension I10 Hypertension type: primary hypertension Hypercholesteremia E78.00 Time Spent (min) 35 (1) Closed fracture of left hip Encounter type: initial encounter Qualified Code(s): S72.002A - Fracture of unspecified part of neck of left femur, initial encounter for closed fracture (2) Hypertension Hypertension type: primary hypertension Qualified Code(s): I10 - Essential (primary) hypertension
--- NOTE | 2024-03-12 12:34 | Anesthesiology Consultation ---
Date of Service March 12, 2024 Assessment & Plan (1) Encounter for pre-operative examination: Chart Review Chart Review: Acceptable Risk for Surgery History Surgery Operation Date: 03/12/24 07:00 Proposed Procedures p Left Troch Nail - Peter Beatty MD Height/Weight Height: 5 ft 5 in Weight: 85.4 kg Allergies Allergy/AdvReac Type Severity Reaction Status Date / Time enoxaparin [From Lovenox] Allergy Unknown Hives Verified 03/11/24 18:08 lisinopril Allergy Unknown Hives Verified 03/11/24 18:08 Penicillins Allergy Unknown Hives Verified 03/11/24 18:08 Sulfa (Sulfonamide Allergy Unknown Hives Verified 03/11/24 18:08 Antibiotics) Medications Home Medications Medication Instructions Recorded Confirmed Last Taken aspirin 81 mg tablet,delayed 81 mg PO DAILY #30 tabs 01/04/19 03/11/24 03/11/24 release (Adult Low Dose Aspirin) docusate sodium 100 mg capsule 100 mg PO BID 03/12/19 03/11/24 03/11/24 multivitamin (Daily Multi-Vitamin 1 tab PO DAILY 03/12/19 03/11/24 03/11/24 tablet) calcium citrate 200 mg 2 tab PO DAILY 07/20/19 03/11/24 03/11/24 calcium-vitamin D3 6.25 mcg (250 unit) tablet (Citracal-D3 Petites) ascorbate calcium (vitamin C) 500 500 mg PO DAILY 09/18/19 03/11/24 03/11/24 mg tablet omega-3 fatty acids-fish oil 360 1 cap PO BID 04/14/21 03/11/24 03/11/24 mg-1,200 mg capsule (Fish Oil) vitamin E mixed 400 unit tablet 400 units PO BID 04/14/21 03/11/24 03/11/24 thigh high compression stockings #1 ea 05/07/22 12/06/23 Unknown spironolactone 25 mg tablet 25 mg PO QAM #90 tabs 10/11/23 03/11/24 03/11/24 atenolol 50 mg tablet 50 mg PO QAM #90 tabs 12/05/23 03/11/24 03/11/24 atorvastatin 20 mg tablet 20 mg PO QPM #90 tabs 12/05/23 03/11/24 03/10/24 potassium chloride 10 mEq 10 meq PO BID #180 tabs 12/05/23 03/11/24 03/11/24 tablet,extended release cyanocobalamin (vitamin B-12) 1,000 mcg PO 3XWK 03/11/24 03/11/24 03/09/24 1,000 mcg tablet (Vitamin B-12) Active Medications Generic Name Dose Route Start Last Admin Trade Name Freq PRN Reason Stop Dose Admin Acetaminophen 650 mg 03/11/24 19:30 03/12/24 12:14 Acetaminophen 325 Mg Tab PO 04/10/24 19:29 650 mg Q6H DEREJE Administration Atenolol 50 mg 03/12/24 09:00 03/12/24 07:46 Atenolol 50 Mg Tablet PO 04/11/24 08:59 50 mg QAM DEREJE Administration Atorvastatin Calcium 20 mg 03/11/24 21:00 03/11/24 21:22 Atorvastatin 20 Mg Tab PO 04/10/24 20:59 20 mg QPM DEREJE Administration Sodium Chloride 1,000 mls @ 100 mls/hr 03/12/24 08:00 03/12/24 08:11 Nss IV 04/11/24 07:59 100 mls/hr .Q10H DEREJE Administration Morphine Sulfate 2 mg 03/11/24 17:51 03/12/24 04:57 Morphine Sulfate 2 Mg/Ml Carp IV 03/25/24 17:50 2 mg Q3H PRN Administration Pain (1,2,3,4,5) & Pre PT Morphine Sulfate 4 mg 03/11/24 17:51 03/11/24 19:38 Morphine Sulfate 4 Mg/Ml 1 Ml Carp\Vial IV 03/25/24 17:50 4 mg Q3H PRN Administration Pain (6,7,8,9,10) NPO Date Last Intake of Fluids: 03/11/24 Time Last Intake of Fluids: 22:00 Past Medical History Medical History History of COVID-19 HX + TEST MAY 2020 - NO SYMPTOMS History of ulcer of lower extremity HX NON HEALING LEFT LEG ULCER ANKLE - REASON FOR VEIN ABLATION - HEALED/ NO FURTHER PROBLEMS Hypercholesteremia Degenerative arthritis of knee, bilateral Phlebitis MULTIPLE TIMES IN HX Chronic reflux esophagitis HX REFLUX - NO CURRENT PROBLEMS WITH Hypertension Peripheral neuropathy NO OFFICIAL DX OF , IN TOES RIGHT WORSE THAN LEFT Past Family History Family History Mother Myocardial infarction Father Prostate cancer Denies family history of Ovarian cancer Breast cancer Colorectal cancer Past Surgical History Surgical History History of vein stripping VEIN ABLATION , LEFT LEG H/O colonoscopy 2011 by Aris Pan S/P tonsillectomy HX Social History Smoking Status: Never smoker Do You Dip or Chew Tobacco: No Hx Alcohol Use: No Hx Substance Use: No substance use type: does not use Physical Exam Vital Signs Last Vital Signs Temp 36.9 C 03/12/24 11:12 Pulse 61 03/12/24 11:12 Resp 18 03/12/24 11:12 BP 147/75 H 03/12/24 11:12 Pulse Ox 96 03/12/24 11:12 O2 Del Method Room Air 03/12/24 11:12 Testing Laboratory Results 03/12/24 05:56 03/12/24 05:56 PT 11.0 Seconds (9.0-12.0) 03/12/24 05:56 INR 1.0 (0.9-1.1) 03/12/24 05:56 APTT 24 Seconds (21-31) 03/11/24 16:50 Urine Color Yellow 03/11/24 17:25 Urine Appearance Clear (Clear) 03/11/24 17:25 Urine pH 8.0 (4.5-7.5) H 03/11/24 17:25 Ur Specific [place] 1.020 (1.000-1.030) 03/11/24 17:25 Urine Protein Negative (Negative) 03/11/24 17:25 Urine Glucose (UA) Negative (Negative) 03/11/24 17:25 Urine Ketones Negative (Negative) 03/11/24 17:25 Urine Nitrite Negative (Negative) 03/11/24 17:25 Ur Leukocyte Esterase Negative (Negative) 03/11/24 17:25 Electrocardiogram Date: 03/11/24 Findings: + NSR @ (67) cannot rule out septal infarct
[2024-03-12] MEDS: LACTATED RINGER'S 1,000 ML IV SCH (12:58)
[2024-03-12] MEDS ORDERED: KETOROLAC TROMETHAMINE 15 MG/ML VIAL IV PRN (13:33)
[2024-03-12] MEDS ORDERED: ATROPINE SULFATE 0.1 MG/ML 10ML SYR IV PRN (13:33)
[2024-03-12] MEDS ORDERED: HYDROmorphone INJ 1 MG/ML SYRINGE IV PRN (13:33)
[2024-03-12] MEDS ORDERED: MIDAZOLAM HCL 1 MG/ML 2ML VIAL ONE (13:41)
[2024-03-12] MEDS ORDERED: fentaNYL citrate PF 100 MCG/2 ML VIAL ONE (13:41)
[2024-03-12] MEDS: TRANEXAMIC ACID / 0.7% NACL 1,000 MG/100 ML BAG IV ONE (14:06)
[2024-03-12] MEDS: TRANEXAMIC ACID / 0.7% NACL 1000MG/100ML BAG IV ONE (14:06)
[2024-03-12] MEDS: ceFAZolin 2000MG 2,000 MG/15 ML SYR IV SCH ×2 (14:30→21:12)
[2024-03-12] MEDS ORDERED: PROPOFOL IV EMULSION 10 MG/ML 20 ML VIAL IV ONE (14:52)
[2024-03-12] MEDS ORDERED: ROCURONIUM BROMIDE 10 MG/ML 5 ML VIAL IV ONE (14:52)
[2024-03-12] MEDS ORDERED: ONDANSETRON INJ 2 MG/ML 2 ML VIAL ONE (14:52)
[2024-03-12] MEDS ORDERED: DEXAMETHASONE SOD INJ 4 MG/ML VIAL ONE (14:52)
[2024-03-12] MEDS ORDERED: LIDOCAINE 2% 2 ML VIAL/AMP(20MG/ML) INFIL ONE (14:52)
[2024-03-12] MEDS ORDERED: SUGAMMADEX SODIUM 200 MG/2 ML VIAL IV ONE (15:24)
[2024-03-12] MEDS: BUPIVACAINE 0.5 % 5 MG/1 ML MPF 30ML VIAL ONE (15:32)
[2024-03-12] MEDS: LIDOCAINE 1%/EPINEPHRINE 1:100,000 50 ML VIAL ONE (15:33)
--- NOTE | 2024-03-12 15:40 | Post Operative Brief Note ---
Immediate Post Op Note Date of Surgery March 12, 2024 Pre & Post Diagnosis Operation Date: 03/12/24 07:00 Pre-Op Diagnosis: Fall, left hip fracture. Post-Op Diagnosis: Fall, left hip fracture. I identified the patient and participated in the time-out.: Yes Procedure Operation Date: 03/12/24 07:00 Actual Procedures p Left trochanteric nail (Left) - Peter Beatty MD Surgeon Peter Beatty MD Mushroom Sorter Grader DEBRA Butler PA-C (No fellow avail) Estimated Blood Loss 30 Findings Consistent with Post-Op Diagnosis Fluids 700 cc Drains Ledesma Catheter Anesthesia Type General Complications none
--- NOTE | 2024-03-12 15:41 | Operative Report ---
Post Operative Report Pre & Post Diagnosis Operation Date: 03/12/24 07:00 Pre-Op Diagnosis: Fall, left hip intra-trochanteric fracture. Post-Op Diagnosis: Fall, left hip intra-trochanteric fracture. I identified the patient and participated in the time-out.: Yes Procedure Operation Date: 03/12/24 07:00 Actual Procedures p Left hip ORIF with trochanteric nail (Left) - Peter Beatty MD Surgeon Peter Beatty MD Donor Center Technician DEBRA Butler PA-C (No fellow avail) Estimated Blood Loss 30 Findings See Below Left intra-trochanteric hip fracture Fluids 700 cc Specimens n/a Drains Ledesma Anesthesia Type General Complications none Indications The patient is a 63 year old female who sustained a left hip fracture from a ground level fall. The patients treatment options of conservative versus surgical intervention were discussed. Since the patient was an ambulatory prior to the injury and to avoid the risks of bed sores, pulmonary complications, and to give the best chance for ambulation, I recommended surgery. The patient understands the risks of surgery, which include but are not limited to: bleeding, infection, re-operation, damage to nerves and arteries, continued pain, failure of the hardware, mal-union, non-union, DVT, and . In addition the patient is aware of the 20-30% morbidity associated with hip fracture for up to 1 year following a hip fracture. The patient understands all of these instructions and explanations, all of their questions have been satisfactorily addressed. The patient has elected to proceed with surgery and the informed consent was signed. Description of Procedure DEBRA Butler PA-C is assisting with positioning and closure due to fellow not available. IMPLANTS: 1) 12 mm short Troch nail (Synthes). 2) 12 x 90 mm helical screw. 3) 5 x 38 mm locking screw. Procedure: The patient was taken to the Operating Room and placed in the supine position on the fracture table after spinal anesthesia was administered. A multidisciplinary time-out was performed identifying my initials on the left lower limb as the correct and operative limb. Prior to the incision being made, 2 grams of intravenous Ancef were given. Fluoroscopy was brought in to ensure adequate x-rays images could be obtained. A reduction was performed with traction, adduction, and internal rotation of the operative limb. Once this was confirmed with Fluro, the left lower extremity was prepped in the standard fashion. The trochanter was marked as was the planned incision and trajectory of the helical screw. The incisions were injected with a 50:50 mixture of 1% Lidocaine plain and 0.5% Bupivacaine with epinephrine for a total of 10cc. The planned incision proximal to the greater trochanter was made and carried down through the Tensor Fascia Susi to expose the tip of the greater trochanter and the starting position. A starting guide wire was placed and the starting reamer was used to create the entry hole for the short implant. A size 12 was selected. The implant was then inserted without difficulty. A second incision was made for placement of the helical blade and distal locking screw. These were placed through the aiming guide in the standard fashion. The Helical blade was locked in place after compressing the fracture in the standard fashion. The traction was released. Final x-rays were obtained showing TAD of less than 25mm. The wounds were copiously irrigated. The Tensor Fascia Susi was closed with 0 Vicryl. The subcutaneous tissue was closed with 3-0 Vicryl. The skin was closed with bimal. The incisions were covered with Xeroform, 4x4s, ABD, and foam tape. The patient was transfer to her hospital bed and taken to the PACU in stable condition. The sponge and needle counts were correct. Post-op Instructions: The patient was admitted to the Hospitalist service. The patient will be WBAT with a walker. The patient will be seen by PT/OT. Labs will be checked in the am. DVT prophylaxis will be with TEDs, mechanical devices and ASA 81 mg BID for 6 weeks. I attest to the content of the Intraoperative Record and any orders documented therein. Any exceptions are noted below.
--- NOTE | 2024-03-12 15:52 | Operative Report ---
Post Operative Report Pre & Post Diagnosis Operation Date: 03/12/24 07:00 Pre-Op Diagnosis: Fall, left hip fracture. Post-Op Diagnosis: Fall, left hip fracture. I identified the patient and participated in the time-out.: Yes Procedure Operation Date: 03/12/24 07:00 Actual Procedures p Left trochanteric nail (Left) - Peter Beatty MD Surgeon Peter Beatty MD Lithographed Plate Inspector DEBRA Butler PA-C (No fellow avail) Estimated Blood Loss 30 Findings Consistent with Post-Op Diagnosis Specimens none Description of Procedure I was present during the entire case assisting with positioning, prepping, draping, wound retraction, wound closure and dressing application. No fellow present. Please see Dr. Beatty procedure note for specifics of the case. I attest to the content of the Intraoperative Record and any orders documented therein. Any exceptions are noted below.
--- NOTE | 2024-03-12 16:07 | Anesthesiology Progress Note ---
Date of Service March 12, 2024 Anesthesia Post Procedure Vital Signs Vital Signs: Temp Pulse Pulse Pulse Resp BP BP 03/12/24 12:51 65 65 18 176/74 H 03/12/24 11:12 36.9 C 61 18 147/75 H 03/12/24 07:33 74 18 145/79 H 03/11/24 20:00 37.1 C 72 16 176/70 H 03/11/24 19:27 03/11/24 19:00 72 18 151/82 H 03/11/24 18:00 72 13 139/82 03/11/24 17:18 69 20 170/88 H 03/11/24 16:35 65 Pulse Ox O2 Del Method 03/12/24 12:51 99 Room Air 03/12/24 11:12 96 Room Air 03/12/24 07:33 96 Room Air 03/11/24 20:00 97 Room Air 03/11/24 19:27 94 Room Air 03/11/24 19:00 94 Room Air 03/11/24 18:00 95 Room Air 03/11/24 17:18 97 Room Air 03/11/24 16:35 Pain Intensity Left Hip: Pain Intensity: 3 Transfer of Care Handoff Completed per policy Notes Mental Status: alert / awake / arousable and participated in evaluation Patient Amnestic to Procedure: Yes Nausea / Vomiting: adequately controlled Pain: adequately controlled Airway Patency, RR, SpO2: stable & adequate BP & HR: stable & adequate Hydration State: stable & adequate Anesthetic Complications: no major complications apparent and Pt Satisfied with anesthetic care
[2024-03-12] MEDS: MEPERIDINE HCL 25 MG/ML CARP/VIAL ONE (16:24)
[2024-03-12] MEDS: MEPERIDINE HCL 50 MG/ML CARP IV STA (16:24)
--- NOTE | 2024-03-12 17:02 | XRay Report ---
XR hip LT min 2V CLINICAL HISTORY: Post-Operative implant position. COMPARISON: Left hip radiographs March 11, 2024. FINDINGS: Interval internal fixation of the nondisplaced intertrochanteric fracture of the left femur with trochanteric nail is noted. There are no unexpected radiopaque foreign bodies. There are skin s taples. Hardware is intact. IMPRESSION: Expected findings following internal fixation of the proximal left femoral fracture. ACT 112: Negative or not required by law. Electronically signed by: Wilfrido Segovia M.D. 03/12/2024 5:00 PM
--- NOTE | 2024-03-12 17:19 | Fluoroscopy Report ---
FL hip LT 2-3V CLINICAL HISTORY: LEFT TROCHNAIL COMPARISON STUDY: Left hip radiographs March 11, 2024. FLUOROSCOPY TIME: 57.9 seconds. Ka, r: 14.04 mGy FLUOROSCOPIC IMAGES: 4 FINDINGS: Fluoroscopy was provided during open reduction and internal fixation of the intertrochanter ic fracture of the left femur. Hardware is intact. There are no unexpected radiopaque foreign bodies. IMPRESSION: Fluoroscopy provided during open reduction and internal fixation of the intertrochanteri c fracture of the left femur. ACT 112: Negative or not required by law. Electronically signed by: Wilfrido Segovia M.D. 03/12/2024 5:18 PM
--- NOTE | 2024-03-13 05:27 | Electrocardiogram Report ---
Test Reason : Blood Pressure : */* mmHG Vent. Rate : 67 BPM Atrial Rate : 67 BPM P-R Int : 188 ms QRS Dur : 104 ms QT Int : 418 ms P-R-T Axes : 53 -22 77 degrees QTcB Int : 441 ms Normal sinus rhythm Left ventricular hypertrophy with repolarization abnormality ( R in aVL , Jose product ) Abnormal ECG No previous ECGs available Confirmed by Luca Ruiz ([id number]) on 03/13/2024 5:27:28 AM Referred By: REFERRED SELF Confirmed By: Luca Ruiz
[2024-03-13 07:37] LABS: INR 1.1 (0.9-1.1); Prothrombin Time 11.5 Seconds (9.0-12.0)
[2024-03-13 07:46] LABS: Basophils # (auto) 0.02 K/uL (0.00-0.20); Basophils % (auto) 0.2 %; Eosinophils # (auto) 0.03 K/uL (0.00-0.50); Eosinophils % (auto) 0.3 %; Hemoglobin 11.9 g/dl (12.0-16.0); Immature Granulocytes # (auto) 0.04 K/uL (0.01-0.20); Immature Granulocytes % (auto) 0.5 %; Lymphocytes # (auto) 1.24 K/uL (1.20-3.40); Lymphocytes % (auto) 14.1 %; Mean Corpuscular Hemoglobin 29.8 pg (25.0-34.0); Mean Corpuscular Hgb Conc 33.1 g/dL (32.0-36.0); Monocytes # (auto) 1.23 K/uL (0.11-0.59); Monocytes % (auto) 13.9 %; Neutrophils # (auto) 6.26 K/uL (1.40-6.50); Platelet Count 174 K/uL (130-400); RDW Coefficient of Variation 12.8 % (11.5-14.5); RDW Standard Deviation 42.6 fL (36.4-46.3); White Blood Count 8.82 K/ul (4.8-10.8)
[2024-03-13 07:56] LABS: BUN Creatinine Ratio 17.7 (10-20); Calcium 8.8 mg/dl (8.6-10.3); Creatinine Clr Calc Pharmacy 76.6 ml/min; Est GFR (Non-African American) 78.6 ml/min; Magnesium 1.7 mg/dl (1.7-2.4); Potassium 4.1 mmol/L (3.5-5.1)
--- NOTE | 2024-03-13 09:48 | Orthopedic Progress Note ---
Date of Service March 13, 2024 Assessment & Plan (1) S/p left hip fracture: Plan: POD #1 s/p ORIF L hip fracture with Trochanteric nailing Resume diet. WBAT with walker. OOB to chair. Continue pain control. DVT prophylaxis: TEDs 3 weeks, foot pumps while in hospital, ASA 81 mg BID for 6 weeks. PT/OT. Dressing C/D/I and left in place. Will change tomorrow Continue care per primary Service. D/C planning. Follow up at [facility] in 10-14 days With questions contact our clinic at [phone] Admission and Anticipated Discharge Date Admission Date: March 11, 2024 Supervising Physician Co-Signing Physician Notes I, Dr. Beatty, saw and examined the patient and agree with the above findings and plan of care I formulated and discussed with my PA. Subjective This 63-year-old female is seen today day 1 status post left hip fracture open reduction internal fixation with trochanteric nailing. Patient states her pain is well-controlled with p.o. pain medications she is receiving. She states that she was able to ambulate with the assistance of her walker to the bathroom and out into the hallway. Patient states that she has met with case management to discuss the possibility of postoperative rehab. Currently she denies chest pain, shortness of breath, fever, chills, sweats, numbness or tingling in her left lower extremity, nausea, vomiting or diarrhea. She currently has a Ledesma catheter in place. Review of Systems Review of Systems: All systems reviewed & are unremarkable except as noted in Subjective Physical Exam Physical Exam: Left hip: Patient's postoperative dressing is clean dry and intact and left in place. She is able to perform an active straight leg raise test. She is able to actively dorsi and plantarflex her foot without issue. She has no pain with logroll testing. She tolerates light passive hip flexion near 90 degrees. She does experience some slight tension with light passive internal rotation but has no discomfort with passive external rotation. She is neurovascularly intact in the left lower extremity. Results & Data Vital Signs (Past 12 Hours) Vital Signs Temp Pulse Resp BP Pulse Ox O2 Del Method 03/13/24 08:07 36.8 C 63 19 144/75 H 99 Room Air 03/13/24 04:00 37.0 C 68 16 154/77 H 96 Room Air 03/12/24 23:59 36.7 C 67 16 131/72 95 Room Air Diagnostic Findings Laboratory Results WBC 8.82 K/ul (4.8-10.8) 03/13/24 07:02 RBC 4.00 M/uL (4.20-5.40) L 03/13/24 07:02 Hgb 11.9 g/dl (12.0-16.0) L 03/13/24 07:02 Hct 36.0 % (37.0-47.0) L 03/13/24 07:02 MCV 90.0 fL (80.0-100.0) 03/13/24 07:02 MCH 29.8 pg (25.0-34.0) 03/13/24 07:02 MCHC 33.1 g/dL (32.0-36.0) 03/13/24 07:02 RDW Std Deviation 42.6 fL (36.4-46.3) 03/13/24 07:02 RDW Coeff of Shira 12.8 % (11.5-14.5) 03/13/24 07:02 Plt Count 174 K/uL (130-400) 03/13/24 07:02 MPV 10.0 fL (9.4-12.4) 03/13/24 07:02 Immature Gran % (Auto) 0.5 % 03/13/24 07:02 Neut % (Auto) 71.0 % 03/13/24 07:02 Lymph % (Auto) 14.1 % 03/13/24 07:02 [place]house % (Auto) 13.9 % 03/13/24 07:02 Eos % (Auto) 0.3 % 03/13/24 07:02 Baso % (Auto) 0.2 % 03/13/24 07:02 Neut # (Auto) 6.26 K/uL (1.40-6.50) 03/13/24 07:02 Lymph # (Auto) 1.24 K/uL (1.20-3.40) 03/13/24 07:02 [place]house # (Auto) 1.23 K/uL (0.11-0.59) H 03/13/24 07:02 Eos # (Auto) 0.03 K/uL (0.00-0.50) 03/13/24 07:02 Baso # (Auto) 0.02 K/uL (0.00-0.20) 03/13/24 07:02 Immature Gran # (Auto) 0.04 K/uL (0.01-0.20) 03/13/24 07:02 PT 11.5 Seconds (9.0-12.0) 03/13/24 07:02 INR 1.1 (0.9-1.1) 03/13/24 07:02 APTT 24 Seconds (21-31) 03/11/24 16:50 PTT Ratio 0.9 03/11/24 16:50 Sodium 140 mmol/L (136-145) 03/13/24 07:02 Potassium 4.1 mmol/L (3.5-5.1) 03/13/24 07:02 Chloride 106 mmol/L (98-107) 03/13/24 07:02 Carbon Dioxide 29 mmol/L (21-32) 03/13/24 07:02 Anion Gap 5 (3-11) 03/13/24 07:02 BUN 14 mg/dl (6-23) 03/13/24 07:02 Creatinine 0.79 mg/dl (0.6-1.2) 03/13/24 07:02 Est Cr Clr Drug Dosing 76.6 ml/min 03/13/24 07:02 Est GFR ( Amer) 91.0 ml/min 03/13/24 07:02 Est GFR (Non-Af Amer) 78.6 ml/min 03/13/24 07:02 BUN/Creatinine Ratio 17.7 (10-20) 03/13/24 07:02 Glucose 114 mg/dl (70-99(Fasting)) H 03/13/24 07:02 Calcium 8.8 mg/dl (8.6-10.3) 03/13/24 07:02 Magnesium 1.7 mg/dl (1.7-2.4) 03/13/24 07:02 Total Bilirubin 0.6 mg/dl (0.2-1.0) 03/11/24 16:50 AST 23 U/L (13-39) 03/11/24 16:50 ALT 22 U/L (7-52) 03/11/24 16:50 Alkaline Phosphatase 60 U/L (34-104) 03/11/24 16:50 Total Protein 7.6 gm/dl (6.0-8.3) 03/11/24 16:50 Albumin 4.5 gm/dl (3.4-5.0) 03/11/24 16:50 Globulin 3.1 gm/dl (2.5-4.0) 03/11/24 16:50 Albumin/Globulin Ratio 1.5 (0.9-2) 03/11/24 16:50 25-OH Vitamin D Total 36.4 ng/ml (30-100) 03/13/24 07:02 Urine Color Yellow 03/11/24 17:25 Urine Appearance Clear (Clear) 03/11/24 17:25 Urine pH 8.0 (4.5-7.5) H 03/11/24 17:25 Ur Specific [place]one 1.020 (1.000-1.030) 03/11/24 17:25 Urine Protein Negative (Negative) 03/11/24 17:25 Urine Glucose (UA) Negative (Negative) 03/11/24 17:25 Urine Ketones Negative (Negative) 03/11/24 17:25 Urine Blood Negative (Negative) 03/11/24 17:25 Urine Nitrite Negative (Negative) 03/11/24 17:25 Urine Bilirubin Negative (Negative) 03/11/24 17:25 Urine Urobilinogen Negative (Negative) 03/11/24 17:25 Ur Leukocyte Esterase Negative (Negative) 03/11/24 17:25 SARS-CoV-2, RNA, NAAT NEGATIVE (NEGATIVE) 03/11/24 17:25 Impressions Hip/Pelvis X-Ray 03/11/24 15:59 XR hip LT 2V w pelvis CLINICAL HISTORY: Hip trauma, fracture suspected, no prior imaging COMPARISON STUDY: None. FINDINGS: There is nondisplaced intertrochanteric fracture within the proximal left femur. No dislocation. No acute fracture or dislocation within the pelvis or right hip. IMPRESSION: Nondisplaced intertrochanteric fracture within the proximal left femur. ACT 112: Negative or not required by law. Electronically signed by: Yinka Hurtado M.D. 03/11/2024 5:14 PM Chest X-Ray 03/11/24 16:30 XR chest 1V portable HISTORY: Hip fracture. Fall. Preop. COMPARISON: None. FINDINGS: The lungs are clear. Cardiac silhouette is normal in size. No pleural effusions. No pneumothorax. IMPRESSION: No acute process. ACT 112: Negative or not required by law. Electronically signed by: Yinka Hurtado M.D. 03/11/2024 5:20 PM Hip X-Ray 03/12/24 15:53 XR hip LT min 2V CLINICAL HISTORY: Post-Operative implant position. COMPARISON: Left hip radiographs March 11, 2024. FINDINGS: Interval internal fixation of the nondisplaced intertrochanteric fracture of the left femur with trochanteric nail is noted. There are no unexpected radiopaque foreign bodies. There are skin bimal. Hardware is intact. IMPRESSION: Expected findings following internal fixation of the proximal left femoral fracture. ACT 112: Negative or not required by law. Electronically signed by: Wilfrido Segovia M.D. 03/12/2024 5:00 PM
--- NOTE | 2024-03-13 14:19 | Hospitalist Progress Note ---
Date of Service March 13, 2024 Assessment & Plan (1) Closed fracture of left hip: Plan: Presented to the hospital following a mechanical fall X-ray of the left hip shows a nondisplaced intertrochanteric fracture within the proximal left femur. She is now day 1s/p ORIF -Weight bearing as tolerated -DVT prophylaxis with ASA -PT eval -Will need rehab Pain control with scheduled Tylenol and as needed morphine PT OT after surgery (2) Hypertension: Plan: Blood pressure under fair control Will plan to continue home atenolol but hold spironolactone for now (3) Hypercholesteremia: Plan: Continue statin Hold aspirin for now until after her procedure Plan Hopefully d/c to rehab when accepted Full code DVT prophylaxis SCDs for now Admission and Anticipated Discharge Date Admission Date: March 11, 2024 Subjective patient seen and examined, stable post ORIF Review of Systems Review of Systems: All systems reviewed are negative, apart from the ones contained in the history. Physical Exam Physical Exam: The patient is awake, alert and oriented 3, well developed and well nourished, normocephalic and atraumatic, lying in bed and in no acute distress. HEENT--PERRL, EOMI, mucous membranes and oropharynx mildly dry Neck--supple. No JVD. No bruits. Thyroid normal, trachea midline, no adenopathy. Heart--normal S1 and S2. No murmurs, rubs or gallops. Lungs--clear bilaterally, no respiratory distress, no accessory muscle use. Abdomen--normal bowel sounds and soft. Extremities--no cyanosis or clubbing. No edema. Dermatologic--normal skin turgor, normal color, no abnormal lymph nodes, no rash. Neurologic--cranial nerves II through XII grossly intact. Rheumatologic--normal range of motion. Psychiatric--normal affect. Results & Data Results & Data Vital Signs (Past 12 Hours) Vital Signs Temp Pulse Resp BP Pulse Ox O2 Del Method 03/13/24 11:41 97.7 F 60 19 118/62 95 Room Air 03/13/24 08:07 98.2 F 63 19 144/75 H 99 Room Air 03/13/24 04:00 98.6 F 68 16 154/77 H 96 Room Air PG Care Time/CCT Total # of Minutes Spent Total Time Spent with Patient: Total time spent is greater than 50% in coordination of care (as documented) at patient's floor/unit and/or counseling patient: Coding Level of Care Code 42123 SUB INP/OBS CARE 2/35MIN Diagnoses Closed fracture of left hip S72.002A Encounter type: initial encounter Primary hypertension I10 Hypertension type: primary hypertension Hypercholesteremia E78.00 Time Spent (min) 35 (1) Closed fracture of left hip Encounter type: initial encounter Qualified Code(s): S72.002A - Fracture of unspecified part of neck of left femur, initial encounter for closed fracture (2) Hypertension Hypertension type: primary hypertension Qualified Code(s): I10 - Essential (primary) hypertension
[2024-03-13] MEDS: traMADol HCL 50 MG TABLET PO PRN (14:45)
[2024-03-14 06:37] LABS: INR 1.1 (0.9-1.1); Prothrombin Time 11.4 Seconds (9.0-12.0)
[2024-03-14 06:40] LABS: Basophils # (auto) 0.06 K/uL (0.00-0.20); Basophils % (auto) 0.8 %; Eosinophils # (auto) 0.16 K/uL (0.00-0.50); Eosinophils % (auto) 2.1 %; Hematocrit (blood only) 32.1 % (37.0-47.0); Hemoglobin 10.8 g/dl (12.0-16.0); Immature Granulocytes # (auto) 0.02 K/uL (0.01-0.20); Immature Granulocytes % (auto) 0.3 %; Lymphocytes # (auto) 1.81 K/uL (1.20-3.40); Lymphocytes % (auto) 23.6 %; Mean Corpuscular Hemoglobin 29.8 pg (25.0-34.0); Mean Corpuscular Hgb Conc 33.6 g/dL (32.0-36.0); Mean Corpuscular Volume 88.7 fL (80.0-100.0); Mean Platelet Volume 10.4 fL (9.4-12.4); Monocytes # (auto) 1.05 K/uL (0.11-0.59); Monocytes % (auto) 13.7 %; Neutrophils # (auto) 4.57 K/uL (1.40-6.50); Neutrophils % (auto) 59.5 %; Platelet Count 154 K/uL (130-400); RDW Coefficient of Variation 12.9 % (11.5-14.5); RDW Standard Deviation 41.8 fL (36.4-46.3); Red Blood Count 3.62 M/uL (4.20-5.40); White Blood Count 7.67 K/ul (4.8-10.8)
[2024-03-14 07:02] LABS: BUN Creatinine Ratio 23.4 (10-20); Calcium 8.6 mg/dl (8.6-10.3); Creatinine Clr Calc Pharmacy 78.6 ml/min; Est GFR (African American) 93.9 ml/min; Magnesium 1.7 mg/dl (1.7-2.4)
--- NOTE | 2024-03-14 09:15 | Orthopedic Progress Note ---
Date of Service March 14, 2024 Assessment & Plan (1) S/p left hip fracture: Plan: POD #2 s/p ORIF L hip fracture with Trochanteric nailing Resume diet. WBAT with walker. OOB to chair. Continue pain control. DVT prophylaxis: TEDs 3 weeks, foot pumps while in hospital, ASA 81 mg BID for 6 weeks. PT/OT. Dressing changed today Continue care per primary Service. D/C planning. Follow up at [facility] in 10-14 days, as scheduled. With questions contact our clinic at [phone] Admission and Anticipated Discharge Date Admission Date: March 11, 2024 Supervising Physician Co-Signing Physician Notes I, Dr. Beatty, saw and examined the patient and agree with the above findings and plan of care I formulated and discussed with my PA. Subjective Patient is sitting up in bed, denies pain in her left hip. States that overall she is doing well. Her pain medications are helping with her pain, taking as minimal as necessary. No current issues from pain medications. Tolerating regular diet. Denies lightheadedness or dizziness. Physical Exam Musculoskeletal: Exam of her left hip: Post op dressings intact. Removed, incisions clean, dry and intact. Mild blood drainage at proximal incision. Nontender with palpation. No underlying seroma or hematoma. No active drainage. No distal edema. Calf supple and nontender with palpation. Full knee and ankle ROM with normal strength. Distal pulses 1+. Results & Data Vital Signs (Past 12 Hours) Vital Signs Temp Pulse Resp BP Pulse Ox O2 Del Method 03/14/24 08:06 36.8 C 70 17 136/75 95 Room Air Laboratory Results 03/14/24 Range/Units 05:22 WBC 7.67 (4.8-10.8) K/ul RBC 3.62 L (4.20-5.40) M/uL Hgb 10.8 L (12.0-16.0) g/dl Hct 32.1 L (37.0-47.0) % MCV 88.7 (80.0-100.0) fL MCH 29.8 (25.0-34.0) pg MCHC 33.6 (32.0-36.0) g/dL RDW Std Deviation 41.8 (36.4-46.3) fL RDW Coeff of Shira 12.9 (11.5-14.5) % Plt Count 154 (130-400) K/uL MPV 10.4 (9.4-12.4) fL Immature Gran % (Auto) 0.3 % Neut % (Auto) 59.5 % Lymph % (Auto) 23.6 % [place] % (Auto) 13.7 % Eos % (Auto) 2.1 % Baso % (Auto) 0.8 % Neut # (Auto) 4.57 (1.40-6.50) K/uL Lymph # (Auto) 1.81 (1.20-3.40) K/uL [place] # (Auto) 1.05 H (0.11-0.59) K/uL Eos # (Auto) 0.16 (0.00-0.50) K/uL Baso # (Auto) 0.06 (0.00-0.20) K/uL Immature Gran # (Auto) 0.02 (0.01-0.20) K/uL PT 11.4 (9.0-12.0) Seconds INR 1.1 (0.9-1.1) Sodium 137 (136-145) mmol/L Potassium 4.0 (3.5-5.1) mmol/L Chloride 104 (98-107) mmol/L Carbon Dioxide 29 (21-32) mmol/L Anion Gap 4 (3-11) BUN 18 (6-23) mg/dl Creatinine 0.77 (0.6-1.2) mg/dl Est Cr Clr Drug Dosing 78.6 ml/min Est GFR ( Amer) 93.9 ml/min Est GFR (Non-Af Amer) 81.0 ml/min BUN/Creatinine Ratio 23.4 H (10-20) Glucose 114 H (70-99(Fasting)) mg/dl Calcium 8.6 (8.6-10.3) mg/dl Magnesium 1.7 (1.7-2.4) mg/dl
[2024-03-14] MEDS: POLYETHYLENE (MIRALAX) 17 GM PACK PO SCH (09:58)
--- NOTE | 2024-03-14 12:23 | Hospitalist Progress Note ---
Date of Service March 14, 2024 Assessment & Plan (1) Closed fracture of left hip: Plan: Presented to the hospital following a mechanical fall X-ray of the left hip shows a nondisplaced intertrochanteric fracture within the proximal left femur. She is now day 2 s/p ORIF -Weight bearing as tolerated -DVT prophylaxis with ASA -PT eval -Will need rehab Pain control with scheduled Tylenol and as needed morphine PT OT after surgery (2) Hypertension: Plan: Blood pressure under fair control Will plan to continue home atenolol but hold spironolactone for now (3) Hypercholesteremia: Plan: Continue statin Hold aspirin for now until after her procedure Plan Hopefully d/c to rehab when accepted Full code DVT prophylaxis SCDs for now Admission and Anticipated Discharge Date Admission Date: March 11, 2024 Subjective patient seen and examined, doing well 2 days post surgery Review of Systems Review of Systems: All systems reviewed are negative, apart from the ones contained in the history. Physical Exam Physical Exam: The patient is awake, alert and oriented 3, well developed and well nourished, normocephalic and atraumatic, lying in bed and in no acute distress. HEENT--PERRL, EOMI, mucous membranes and oropharynx mildly dry Neck--supple. No JVD. No bruits. Thyroid normal, trachea midline, no adenopathy. Heart--normal S1 and S2. No murmurs, rubs or gallops. Lungs--clear bilaterally, no respiratory distress, no accessory muscle use. Abdomen--normal bowel sounds and soft. Extremities--no cyanosis or clubbing. No edema. Dermatologic--normal skin turgor, normal color, no abnormal lymph nodes, no rash. Neurologic--cranial nerves II through XII grossly intact. Rheumatologic--normal range of motion. Psychiatric--normal affect. Results & Data Results & Data Vital Signs (Past 12 Hours) Vital Signs Temp Pulse Resp BP Pulse Ox Pulse Ox O2 Del Method 03/14/24 08:06 98.2 F 70 17 136/75 95 Room Air 03/14/24 08:00 99 O2 Del Method 03/14/24 08:06 03/14/24 08:00 Room Air PG Care Time/CCT Total # of Minutes Spent Total Time Spent with Patient: Total time spent is greater than 50% in coordination of care (as documented) at patient's floor/unit and/or counseling patient: Coding Level of Care Code 89305 SUB INP/OBS CARE MIN Diagnoses Closed fracture of left hip S72.002A Encounter type: initial encounter Primary hypertension I10 Hypertension type: primary hypertension Hypercholesteremia E78.00 Time Spent (min) 35 (1) Closed fracture of left hip Encounter type: initial encounter Qualified Code(s): S72.002A - Fracture of unspecified part of neck of left femur, initial encounter for closed fracture (2) Hypertension Hypertension type: primary hypertension Qualified Code(s): I10 - Essential (primary) hypertension
[2024-03-15 09:28] LABS: Hematocrit (blood only) 36.6 % (37.0-47.0); Mean Corpuscular Hemoglobin 29.7 pg (25.0-34.0); Mean Corpuscular Hgb Conc 32.8 g/dL (32.0-36.0); Mean Corpuscular Volume 90.6 fL (80.0-100.0); Mean Platelet Volume 10.2 fL (9.4-12.4); Platelet Count 179 K/uL (130-400); RDW Standard Deviation 42.7 fL (36.4-46.3); Red Blood Count 4.04 M/uL (4.20-5.40); White Blood Count 6.47 K/ul (4.8-10.8)
[2024-03-15] MEDS: ASPIRIN 81 MG ECTAB PO SCH (09:43)
--- NOTE | 2024-03-15 09:43 | Orthopedic Progress Note ---
Date of Service March 15, 2024 Assessment & Plan (1) Closed fracture of left hip: Plan: The patient was educated regarding today's findings. Her dressings are dry. They were left in place. Continue with PT/OT. Awaiting insurance determination for placement at [facility] versus [facility]. Weight-bear as tolerated. Continue SATISH stockings and aspirin for DVT prophylaxis. Admission and Anticipated Discharge Date Admission Date: March 11, 2024 Subjective This 63-year-old female is seen today for evaluation of her left hip. She is 3 days status post ORIF of the left hip. She states she is doing well. Her pain is controlled. She is currently eating breakfast. She is sitting in her bedside chair. She denies any chest pain, shortness of breath, nausea, vomiting, or abdominal pain. She is waiting for placement and hoping to go to [facility]. She has been participating in physical therapy and Occupational Therapy. No additional complaints. Review of Systems Review of Systems: Unchanged Physical Exam Physical Exam: General: Well-developed, well-nourished, middle-aged female, in no acute distress. Sitting in a bedside chair. Alert and oriented. Skin: Warm dry with good turgor. No rashes. Postsurgical dressings are in place on the left hip. They are clean and dry. No significant postsurgical ecchymosis, or edema. No erythema. Musculoskeletal: The patient has intact motor function of the left leg for both active hip motion, knee flexion and extension, and ankle dorsiflexion and plantarflexion. Strength is 5/5 resisted knee flexion and extension as well as hip flexion. Neurologic: Gross sensation is intact across the left leg by soft touch. Peripheral pulses are 2+. Results & Data Vital Signs (Past 12 Hours) Vital Signs Temp Pulse Resp BP Pulse Ox O2 Del Method 03/15/24 07:20 36.8 C 78 16 152/75 H 96 Room Air Laboratory Results CBC obtained today shows a white count of 6.47. H&H of 12.0 and 36.6. Platelets normal at 179,000.
--- NOTE | 2024-03-15 11:35 | Hospitalist Progress Note ---
Date of Service March 15, 2024 Assessment & Plan (1) Closed fracture of left hip: Plan: Presented to the hospital following a mechanical fall X-ray of the left hip shows a nondisplaced intertrochanteric fracture within the proximal left femur. She is now day 3 s/p ORIF -Weight bearing as tolerated -DVT prophylaxis with ASA -PT eval -Will need rehab Pain control with scheduled Tylenol and as needed morphine PT OT after surgery (2) Hypertension: Plan: Blood pressure under fair control Will plan to continue home atenolol but hold spironolactone for now (3) Hypercholesteremia: Plan: Continue statin Hold aspirin for now until after her procedure Plan Insurance denied acute rehab, will have a peer to peer talk today by Full code DVT prophylaxis SCDs for now Admission and Anticipated Discharge Date Admission Date: March 11, 2024 Subjective Patient seen and examined, doing well postsurgery, pain is under good control Review of Systems Review of Systems: All systems reviewed are negative, apart from the ones contained in the history. Physical Exam Physical Exam: The patient is awake, alert and oriented 3, well developed and well nourished, normocephalic and atraumatic, lying in bed and in no acute distress. HEENT--PERRL, EOMI, mucous membranes and oropharynx mildly dry Neck--supple. No JVD. No bruits. Thyroid normal, trachea midline, no adenopathy. Heart--normal S1 and S2. No murmurs, rubs or gallops. Lungs--clear bilaterally, no respiratory distress, no accessory muscle use. Abdomen--normal bowel sounds and soft. Extremities--no cyanosis or clubbing. No edema. Dermatologic--normal skin turgor, normal color, no abnormal lymph nodes, no rash. Neurologic--cranial nerves II through XII grossly intact. Rheumatologic--normal range of motion. Psychiatric--normal affect. Results & Data Results & Data Vital Signs (Past 12 Hours) Vital Signs Temp Pulse Resp BP Pulse Ox O2 Del Method 03/15/24 07:20 98.2 F 78 16 152/75 H 96 Room Air PG Care Time/CCT Total # of Minutes Spent Total Time Spent with Patient: Total time spent is greater than 50% in coordination of care (as documented) at patient's floor/unit and/or counseling patient: Coding Level of Care Code 70732 SUB INP/OBS CARE MIN Diagnoses Closed fracture of left hip S72.002A Encounter type: initial encounter Primary hypertension I10 Hypertension type: primary hypertension Hypercholesteremia E78.00 Time Spent (min) 35 (1) Closed fracture of left hip Encounter type: initial encounter Qualified Code(s): S72.002A - Fracture of unspecified part of neck of left femur, initial encounter for closed fracture (2) Hypertension Hypertension type: primary hypertension Qualified Code(s): I10 - Essential (primary) hypertension
[2024-03-15] MEDS: CLOTRIMAZOLE 1% CR 15 GM TUBE EXT SCH (11:38)
[2024-03-15] MEDS ORDERED: Nursing to Pharmacy Communication SCH (17:00)
[2024-03-16 06:42] LABS: Hematocrit (blood only) 34.2 % (37.0-47.0); Hemoglobin 11.5 g/dl (12.0-16.0); Mean Corpuscular Hemoglobin 29.8 pg (25.0-34.0); Mean Corpuscular Hgb Conc 33.6 g/dL (32.0-36.0); Mean Corpuscular Volume 88.6 fL (80.0-100.0); Mean Platelet Volume 10.3 fL (9.4-12.4); Platelet Count 173 K/uL (130-400); RDW Standard Deviation 42.3 fL (36.4-46.3); Red Blood Count 3.86 M/uL (4.20-5.40); White Blood Count 6.91 K/ul (4.8-10.8)
[2024-03-16 07:27] LABS: Calcium 9.3 mg/dl (8.6-10.3); Potassium 4.3 mmol/L (3.5-5.1)
[2024-03-16 07:40] LABS: BUN Creatinine Ratio 29.4 (10-20); Est GFR (African American) 106.4 ml/min; Est GFR (Non-African American) 91.8 ml/min
--- NOTE | 2024-03-16 10:13 | Orthopedic Progress Note ---
Date of Service March 16, 2024 Assessment & Plan (1) S/p left hip fracture: Plan: S/p left hip fracture: Plan: POD #4 s/p ORIF L hip fracture with Trochanteric nailing Resume diet. WBAT with walker. OOB to chair. Continue pain control. DVT prophylaxis: TEDs 3 weeks, foot pumps while in hospital, ASA 81 mg BID for 6 weeks. PT/OT. Dressing clean dry intact and left in place Patient states that she is going to [facility] but will have to stay the weekend per her insurance D/C instructions/post op appt completed Admission and Anticipated Discharge Date Admission Date: March 11, 2024 Subjective This 63-year-old female is day 4 status post left hip fracture fixation with trochanteric nailing. Patient is doing very well. She states that she is able to bear a considerable amount of weight with the assistance of her walker. She is easily able to walk around the hallways and transition from her chair to the bathroom to "freshen up" and brush her teeth. She states she has met with case management several times and is planning on going to [facility] however her insurance will not approve it until she stays the weekend. Currently her pain is well-controlled with p.o. pain medication. She denies chest pain, shortness of breath, fever, chills, sweats, numbness or tingling in her left lower extremity, nausea, vomiting, diarrhea or difficulty voiding. She states her urinary catheter was removed on postoperative day 2. Review of Systems Review of Systems: All systems reviewed & are unremarkable except as noted in Subjective Physical Exam Physical Exam: Left hip: Patient's postoperative dressing is clean dry and intact and left in place. She is able to perform an active straight leg raise test. She is able to actively dorsi and plantarflex her foot without issue. She has no pain with logroll testing. She tolerates light passive hip flexion near 90 degrees. She does experience some slight tension with light passive internal rotation but has no discomfort with passive external rotation. She is neurovascularly intact in the left lower extremity. Quad strength is 4 out of 5. Results & Data Vital Signs (Past 12 Hours) Vital Signs Temp Pulse Resp BP Pulse Ox O2 Del Method 03/16/24 09:16 36.8 C 75 18 126/78 96 Room Air Diagnostic Findings Laboratory Results WBC 6.91 K/ul (4.8-10.8) 03/16/24 06:05 RBC 3.86 M/uL (4.20-5.40) L 03/16/24 06:05 Hgb 11.5 g/dl (12.0-16.0) L 03/16/24 06:05 Hct 34.2 % (37.0-47.0) L 03/16/24 06:05 MCV 88.6 fL (80.0-100.0) 03/16/24 06:05 MCH 29.8 pg (25.0-34.0) 03/16/24 06:05 MCHC 33.6 g/dL (32.0-36.0) 03/16/24 06:05 RDW Std Deviation 42.3 fL (36.4-46.3) 03/16/24 06:05 RDW Coeff of Shira 13.0 % (11.5-14.5) 03/16/24 06:05 Plt Count 173 K/uL (130-400) 03/16/24 06:05 MPV 10.3 fL (9.4-12.4) 03/16/24 06:05 Immature Gran % (Auto) 0.3 % 03/14/24 05:22 Neut % (Auto) 59.5 % 03/14/24 05:22 Lymph % (Auto) 23.6 % 03/14/24 05:22 [place] % (Auto) 13.7 % 03/14/24 05:22 Eos % (Auto) 2.1 % 03/14/24 05:22 Baso % (Auto) 0.8 % 03/14/24 05:22 Neut # (Auto) 4.57 K/uL (1.40-6.50) 03/14/24 05:22 Lymph # (Auto) 1.81 K/uL (1.20-3.40) 03/14/24 05:22 [place] # (Auto) 1.05 K/uL (0.11-0.59) H 03/14/24 05:22 Eos # (Auto) 0.16 K/uL (0.00-0.50) 03/14/24 05:22 Baso # (Auto) 0.06 K/uL (0.00-0.20) 03/14/24 05:22 Immature Gran # (Auto) 0.02 K/uL (0.01-0.20) 03/14/24 05:22 PT 11.4 Seconds (9.0-12.0) 03/14/24 05:22 INR 1.1 (0.9-1.1) 03/14/24 05:22 APTT 24 Seconds (21-31) 03/11/24 16:50 PTT Ratio 0.9 03/11/24 16:50 Sodium 139 mmol/L (136-145) 03/16/24 06:05 Potassium 4.3 mmol/L (3.5-5.1) 03/16/24 06:05 Chloride 103 mmol/L (98-107) 03/16/24 06:05 Carbon Dioxide 28 mmol/L (21-32) 03/16/24 06:05 Anion Gap 8 (3-11) 03/16/24 06:05 BUN 20 mg/dl (6-23) 03/16/24 06:05 Creatinine 0.68 mg/dl (0.6-1.2) 03/16/24 06:05 Est Cr Clr Drug Dosing 89.0 ml/min 03/16/24 06:05 Est GFR ( Amer) 106.4 ml/min 03/16/24 06:05 Est GFR (Non-Af Amer) 91.8 ml/min 03/16/24 06:05 BUN/Creatinine Ratio 29.4 (10-20) H 03/16/24 06:05 Glucose 111 mg/dl (70-99(Fasting)) H 03/16/24 06:05 Calcium 9.3 mg/dl (8.6-10.3) 03/16/24 06:05 Magnesium 1.7 mg/dl (1.7-2.4) 03/14/24 05:22 Total Bilirubin 0.6 mg/dl (0.2-1.0) 03/11/24 16:50 AST 23 U/L (13-39) 03/11/24 16:50 ALT 22 U/L (7-52) 03/11/24 16:50 Alkaline Phosphatase 60 U/L (34-104) 03/11/24 16:50 Total Protein 7.6 gm/dl (6.0-8.3) 03/11/24 16:50 Albumin 4.5 gm/dl (3.4-5.0) 03/11/24 16:50 Globulin 3.1 gm/dl (2.5-4.0) 03/11/24 16:50 Albumin/Globulin Ratio 1.5 (0.9-2) 03/11/24 16:50 25-OH Vitamin D Total 36.4 ng/ml (30-100) 03/13/24 07:02 Urine Color Yellow 03/11/24 17:25 Urine Appearance Clear (Clear) 03/11/24 17:25 Urine pH 8.0 (4.5-7.5) H 03/11/24 17:25 Ur Specific [place] 1.020 (1.000-1.030) 03/11/24 17:25 Urine Protein Negative (Negative) 03/11/24 17: Urine Glucose (UA) Negative (Negative) 03/11/24 17:25 Urine Ketones Negative (Negative) 03/11/24 17:25 Urine Blood Negative (Negative) 03/11/24 17:25 Urine Nitrite Negative (Negative) 03/11/24 17:25 Urine Bilirubin Negative (Negative) 03/11/24 17:25 Urine Urobilinogen Negative (Negative) 03/11/24 17:25 Ur Leukocyte Esterase Negative (Negative) 03/11/24 17:25 SARS-CoV-2, RNA, NAAT NEGATIVE (NEGATIVE) 03/11/24 17:25 Impressions Hip/Pelvis X-Ray 03/11/24 15:59 XR hip LT 2V w pelvis CLINICAL HISTORY: Hip trauma, fracture suspected, no prior imaging COMPARISON STUDY: None. FINDINGS: There is nondisplaced intertrochanteric fracture within the proximal left femur. No dislocation. No acute fracture or dislocation within the pelvis or right hip. IMPRESSION: Nondisplaced intertrochanteric fracture within the proximal left femur. ACT 112: Negative or not required by law. Electronically signed by: Yinka Hurtado M.D. 03/11/2024 5:14 PM Chest X-Ray 03/11/24 16:30 XR chest 1V portable HISTORY: Hip fracture. Fall. Preop. COMPARISON: None. FINDINGS: The lungs are clear. Cardiac silhouette is normal in size. No pleural effusions. No pneumothorax. IMPRESSION: No acute process. ACT 112: Negative or not required by law. Electronically signed by: Yinka Hurtado M.D. 03/11/2024 5:20 PM Hip X-Ray 03/12/24 15:53 XR hip LT min 2V CLINICAL HISTORY: Post-Operative implant position. COMPARISON: Left hip radiographs March 11, 2024. FINDINGS: Interval internal fixation of the nondisplaced intertrochanteric fracture of the left femur with trochanteric nail is noted. There are no unexpected radiopaque foreign bodies. There are skin bimal. Hardware is intact. IMPRESSION: Expected findings following internal fixation of the proximal left femoral fracture. ACT 112: Negative or not required by law. Electronically signed by: Wilfrido Segovia M.D. 03/12/2024 5:00 PM
--- NOTE | 2024-03-16 11:31 | Hospitalist Progress Note ---
Date of Service March 16, 2024 Assessment & Plan (1) Closed fracture of left hip: Plan: Presented to the hospital following a mechanical fall X-ray of the left hip shows a nondisplaced intertrochanteric fracture within the proximal left femur. 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 Physical Exam Physical Exam: The patient is awake, alert and oriented 3, well developed and well nourished, normocephalic and atraumatic, lying in bed and in no acute distress. HEENT--PERRL, EOMI, mucous membranes and oropharynx mildly dry Neck--supple. No JVD. No bruits. Thyroid normal, trachea midline, no adenopathy. Heart--normal S1 and S2. No murmurs, rubs or gallops. Lungs--clear bilaterally, no respiratory distress, no accessory muscle use. Abdomen--normal bowel sounds and soft. Extremities--no cyanosis or clubbing. No edema. Dermatologic--normal skin turgor, normal color, no abnormal lymph nodes, no rash. Neurologic--cranial nerves II through XII grossly intact. Rheumatologic--normal range of motion. Psychiatric--normal affect. Results & Data Results & Data Vital Signs (Past 12 Hours) Vital Signs Temp Pulse Resp BP Pulse Ox O2 Del Method 03/16/24 09:16 98.2 F 75 18 126/78 96 Room Air PG Care Time/CCT Total # of Minutes Spent Total Time Spent with Patient: Total time spent is greater than 50% in coordination of care (as documented) at patient's floor/unit and/or counseling patient: Coding Level of Care Code 08041 SUB INP/OBS CARE MIN Diagnoses Closed fracture of left hip S72.002A Encounter type: initial encounter Primary hypertension I10 Hypertension type: primary hypertension Hypercholesteremia E78.00 Dematiaceous fungi infection B48.8 Time Spent (min) 35 (1) Closed fracture of left hip Encounter type: initial encounter Qualified Code(s): S72.002A - Fracture of unspecified part of neck of left femur, initial encounter for closed fracture (2) Hypertension Hypertension type: primary hypertension Qualified Code(s): I10 - Essential (primary) hypertension
[2024-03-17 08:05] LABS: Hematocrit (blood only) 36.7 % (37.0-47.0); Hemoglobin 12.3 g/dl (12.0-16.0); Mean Corpuscular Hemoglobin 29.7 pg (25.0-34.0); Mean Corpuscular Hgb Conc 33.5 g/dL (32.0-36.0); Mean Corpuscular Volume 88.6 fL (80.0-100.0); Mean Platelet Volume 9.9 fL (9.4-12.4); Platelet Count 202 K/uL (130-400); RDW Standard Deviation 41.7 fL (36.4-46.3); Red Blood Count 4.14 M/uL (4.20-5.40); White Blood Count 6.49 K/ul (4.8-10.8)
--- NOTE | 2024-03-17 10:53 | Hospitalist Progress Note ---
Date of Service March 17, 2024 Assessment & Plan (1) Closed fracture of left hip: Plan: Presented to the hospital following a mechanical fall X-ray of the left hip shows a nondisplaced intertrochanteric fracture within the proximal left femur. 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 Physical Exam Physical Exam: The patient is awake, alert and oriented 3, well developed and well nourished, normocephalic and atraumatic, lying in bed and in no acute distress. HEENT--PERRL, EOMI, mucous membranes and oropharynx mildly dry Neck--supple. No JVD. No bruits. Thyroid normal, trachea midline, no adenopathy. Heart--normal S1 and S2. No murmurs, rubs or gallops. Lungs--clear bilaterally, no respiratory distress, no accessory muscle use. Abdomen--normal bowel sounds and soft. Extremities--no cyanosis or clubbing. No edema. Dermatologic--normal skin turgor, normal color, no abnormal lymph nodes, no rash. Neurologic--cranial nerves II through XII grossly intact. Rheumatologic--normal range of motion. Psychiatric--normal affect. Results & Data Results & Data Vital Signs (Past 12 Hours) Vital Signs Temp Pulse Resp BP Pulse Ox O2 Del Method 03/17/24 07:15 98.6 F 88 16 150/79 H 92 Room Air PG Care Time/CCT Total # of Minutes Spent Total Time Spent with Patient: Total time spent is greater than 50% in coordination of care (as documented) at patient's floor/unit and/or counseling patient: Coding Level of Care Code 46691 SUB INP/OBS CARE MIN Diagnoses Closed fracture of left hip S72.002A Encounter type: initial encounter Primary hypertension I10 Hypertension type: primary hypertension Hypercholesteremia E78.00 Dematiaceous fungi infection B48.8 Time Spent (min) 35 (1) Closed fracture of left hip Encounter type: initial encounter Qualified Code(s): S72.002A - Fracture of unspecified part of neck of left femur, initial encounter for closed fracture (2) Hypertension Hypertension type: primary hypertension Qualified Code(s): I10 - Essential (primary) hypertension
[2024-03-17 19:59] VITALS: O2SAT 95
[2024-03-18 06:29] LABS: Hematocrit (blood only) 33.8 % (37.0-47.0); Hemoglobin 11.6 g/dl (12.0-16.0); Mean Corpuscular Hemoglobin 30.1 pg (25.0-34.0); Mean Corpuscular Hgb Conc 34.3 g/dL (32.0-36.0); Mean Corpuscular Volume 87.6 fL (80.0-100.0); Mean Platelet Volume 10.6 fL (9.4-12.4); Platelet Count 176 K/uL (130-400); RDW Coefficient of Variation 12.8 % (11.5-14.5); RDW Standard Deviation 41.5 fL (36.4-46.3); Red Blood Count 3.86 M/uL (4.20-5.40); White Blood Count 6.19 K/ul (4.8-10.8)
[2024-03-18 06:40] LABS: BUN Creatinine Ratio 32.4 (10-20); Calcium 9.3 mg/dl (8.6-10.3); Est GFR (African American) 106.4 ml/min; Est GFR (Non-African American) 91.8 ml/min; Potassium 4.4 mmol/L (3.5-5.1)
[2024-03-18 08:07] VITALS: TEMP 97.9
--- NOTE | 2024-03-18 11:30 | Discharge Summary ---
Date of Service March 18, 2024 Admission HPI Per Admitting Provider Alessandra is a 63-year-old female with a past medical history significant for hypertension and hyperlipidemia who presented to the [facility] ED on 03/11/2024 via EMS after sustaining a mechanical fall at home with subsequent left hip pain. Patient reportedly had just arrived home with family from the [facility] and was unpacking equipment. She tripped and fell backwards landing on her left hip. Denies hitting her head or losing consciousness. Noted to be hypertensive on arrival at 170/88 otherwise stable. Labs including CBC, CMP, and UA were unremarkable Chest x-ray was read as negative for acute findings. X-ray of the left hip and pelvis was read as a nondisplaced intertrochanteric fracture within the proximal left femur. Prior to admission the patient was given 50 mcg IV fentanyl. Patient was lying in bed in no acute distress at time of exam with her sister is bedside, history is obtained from all. She explains that she and one of her sisters were carrying their mini fridge into her home. She was walking backwards while carrying the fridge while her other sister was walking forwards. She did not clear the entryway step which caused her to fall landing on her left hip. Confirms again did not hit her head or lose consciousness, only pain at this time as the left hip. Pain is currently controlled after receiving fentanyl in the ED. No recent fever, chills, chest pain, shortness of breath, cough, nausea/vomiting, abdominal pain, urinary symptoms, diarrhea. She is a full code and want her sisters to make medical decisions for her if she cannot make them herself. Please refer to Dr. Park's attestation for any changes to the treatment plan Admission Exam Per Admitting Provider General: In no acute distress, stated age, well-nourished, good hygiene HEENT: Normocephalic, atraumatic, no scleral icterus, pupils around round, symme trical, and reactive to light, moist mucus membranes, trachea midline, no thyromegaly Chest/Pulm: No respiratory distress, symmetrical chest expansion, clear breath sounds throughout Cardiac: RRR, no murmurs noted Abdomen: Negative for ascites and bruising, normoactive bowel sounds, soft, non- tender to palpation throughout Musculoskeletal: Left lower extremity is currently shortened and externally rotated, otherwise no acute trauma on exam Extremities: Radial, dorsalis pedis, and posterior tibial pulses are intact and symmetrical, no edema noted in the BL LE's Skin: Warm, dry, no rashes , lesions, or scars noted Neuro: Alert and oriented to person, place, month, year, and president, no focal defects, no tremors noted > Intact sensation motor function in the bilateral feet Psych: No acute distress, calm and cooperative during the exam Principal Diagnosis - left hip fracture - status post fall Discharge Exam General: Awake, conversant Heart: S1, S2/regular rate and rhythm, no murmur rubs or gallops Lungs: Clear to auscultation bilaterally. Normal effort Abdomen: Soft/nontender/nondistended. No hepatosplenomegaly Extremities: No clubbing/cyanosis. No edema Behavior: Appropriate, cooperative Discharge Data Allergies Allergy/AdvReac Type Severity Reaction Status Date / Time enoxaparin [From Lovenox] Allergy Unknown Hives Verified 03/12/24 12:51 lisinopril Allergy Unknown Hives Verified 03/12/24 12:51 Penicillins Allergy Unknown Hives Verified 03/12/24 12:51 Sulfa (Sulfonamide Allergy Unknown Hives Verified 03/12/24 12:51 Antibiotics) Consultations 03/11/24 17:51 Consult Anesthesiology Routine Consult Orthopedic Surgery Routine Procedures Performed Operation Date: 03/12/24 07:00 Actual Procedures p Left trochanteric nail (Left) - Peter Gisele Beatty MD Ordered Studies 03/12/24 FL hip LT 2-3V Routine Hospital Course (1) Closed fracture of left hip: Presented to the hospital following a mechanical fall X-ray of the left hip shows a nondisplaced intertrochanteric fracture within the proximal left femur. 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 with erythema and itchiness Continue topical clotrimazole Plan Discharge to rehab today Total Time Total Time Spent Total Time Spent (In Minutes): 35 Discharge Plan Discharge Items Patient Disposition: Transfer Alf Fac Reason For Visit: FALL, LEFT HIP FRACTURE Discharge Diagnosis: - left hip fracture - status post fall Activity: Per Instructions section Non-emergency contact: Primary Care Provider and Surgeon Call non-emergency contact if: you have any medication questions, your symptoms worsen, your pain is not controlled, your temperature is above 101, your wound has increased redness and your wound has increased drainage Follow-up/Referrals: Pratibha Ballard MD [Primary Care Provider] - Joy Mehta PA-C [Physician Financial Aid Coordinator] - 03/26/24 1:00 pm Diet: Regular Addtl Attending Provider Instructions: - Advised to follow-up with PCP in 1 week Addtl [facility] Provider Instructions: Orthopedic instructions: - Weight-bear as tolerated on your left lower extremity with the assistance of a walker at all times. - No hip precautions necessary. May do full range of motion of your left hip, knee and ankle as tolerated. - Ice to left hip as needed for pain and swelling. - Elevate left lower extremity above your heart to relieve pain and swelling as needed. - SATISH stockings bilateral lower extremities on during the day and off at night x 3 weeks after surgery. - Aspirin 81 mg. Take 1 in the morning and 1 in the evening for 6 weeks after surgery. Take with food. - Keep dressing on left hip at all times. Reinforce or change as needed. You may shower with waterproof dressing in place. - Follow-up with [facility] orthopedics as scheduled. Call [phone] with any in creased pain, swelling, drainage from incision, questions, concerns or need to confirm or reschedule appointment. Pending Studies at Discharge: No Stand-Alone Forms: My [facility] Skilled Items Patient informed of condition?: Yes DNR: No Discharge Level of Care: Skilled Communicable Disease: Yes Discharge Prognosis: Stable Lines: None Urinary Catheter: No Medications and DC Order Prescriptions: New aspirin 81 mg Tablet,Delayed Release (Dr/Ec) 81 mg PO BID Qty: 60 0RF Continued (DME) thigh high compression stockings See Rx Instructions .Route .MEDSUPPLY Qty: 1 0RF Rx Instructions: As directed spironolactone 25 mg tablet 25 mg PO QAM Qty: 90 1RF atorvastatin 20 mg tablet 20 mg PO QPM Qty: 90 1RF Rx Instructions: TAKE 1 TABLET BY MOUTH DAILY atenolol 50 mg tablet 50 mg PO QAM Qty: 90 1RF potassium chloride 10 mEq tablet extended release 10 meq PO BID Qty: 180 1RF ascorbate calcium (vitamin C) 500 mg tablet 500 mg PO DAILY calcium citrate-vitamin D3 [Citracal-D3 Petites] 200 mg calcium -250 unit tablet 2 tab PO DAILY docusate sodium 100 mg capsule 100 mg PO BID multivitamin [Daily Multi-Vitamin] tablet 1 tab PO DAILY omega-3 fatty acids-fish oil [Fish Oil] 360-1,200 mg capsule 1 cap PO BID Rx Instructions: administer after a meal vitamin E mixed 400 unit tablet 400 units PO BID cyanocobalamin (vitamin B-12) [Vitamin B-12] 1,000 mcg Tablet 1,000 mcg PO 3XWK Rx Instructions: Mon/Wed/Fri Discontinued aspirin [Adult Low Dose Aspirin] 81 mg tablet,delayed release (DR/EC) 81 mg PO DAILY Qty: 30 2RF Discharge Orders: Discharge Order (Routine); Ordered 03/18/24 Ordered By: Yonathan Ruiz/Other Patient Handouts: After Hip Replacement: Home Safety Admission Data Admit Date/Time: 03/11/24 17:58 Attending Provider: Yonathan Arreguin Admit Provider: Garry Park Primary Care Provider: Pratibha Ballard Other Providers: Sosa Blandon; Peter Beatty; [place],[facility]; Samantha Tucker [facility] Other Interventions: Discharge Summary Assessment (RN) Last Done: 03/18/24 09:23
[2024-03-18 11:56] VITALS: BP 121/70; PULSE 64; RESP 16
== END 2024-03-18 12:48 | DRG 482 ==
LOC: ED 15:35 → 3E 17:58 → SUATTDRO 17:58 → 3E 19:43